=== PATIENT | female | born 1930 | race Caucasian/White ===

== ENCOUNTER 2016-09-26 | Inpatient (IN) | payer MEDICARE, MEDICAID ==
[2016-09-26] VITALS (7 sets, daily range): BP systolic 115–187; BP diastolic 57–87
[~2016-09-26] VITALS: Ht 162.6 cm; Wt 54.9 kg
[~2016-09-26] MED LIST: ACET325S PO; ALEN70TA5 PO; ASPI325T11 PO; CALC600T11 PO; CARV3.122 PO; DILT180C29 PO; DILT240C96 PO; FENT1PAT17 TD; HYDR-2867 PO; IBUP-1007 PO; LOSA50TA6 PO; MAGN400O4 PO; OXYC1TAB9 PO; SENN1TAB11 PO; SIMV10TA3 PO
[2016-09-26 00:39] LABS: BASO # 0.1 x10^3/uL (0.0-0.2); BASO % 1 % (0-3); EOS % 1 % (0-3); HEMATOCRIT 31.3 % (36.0-47.0); LYMPH # 1.4 x10^3/uL (1.0-4.8); LYMPH % 25 % (24-48); MEAN CORPUSCULAR HEMOGLOBIN 29 pg (25-35); MEAN CORPUSCULAR HGB CONC 32 g/dL (31-37); MEAN CORPUSCULAR VOLUME 90 fL (79-100); MONO % 9 % (0-9); NEUT % 64 % (31-73); PLATELET COUNT 326 x10^3/uL (140-400); RED BLOOD COUNT 3.49 x10^6/uL (3.50-5.40); RED CELL DISTRIBUTION WIDTH 16.6 % (11.5-14.5); WHITE BLOOD COUNT 5.6 x10^3/uL (4.0-11.0)
[2016-09-26 00:42] LABS: CALCIUM 8.7 mg/dL (8.5-10.1); CREATININE 1.6 mg/dL (0.6-1.0); GFR 30.6; POTASSIUM 4.3 mmol/L (3.5-5.1)
[2016-09-26 00:48] LABS: ALBUMIN 2.7 g/dL (3.4-5.0); ALBUMIN/GLOBULIN RATIO 0.6 (1.0-1.7); PROTHROMBIN TIME PATIENT 12.6 SEC (11.7-14.0); TOTAL BILIRUBIN 0.1 mg/dL (0.2-1.0); TOTAL PROTEIN 7.2 g/dL (6.4-8.2)
[2016-09-26 01:08] LABS: BILIRUBIN,URINE NEGATIVE (NEG); GLUCOSE,URINE NEGATIVE (NEG); NITRITE,URINE NEGATIVE (NEG); PROTEIN,URINE NEGATIVE (NEG-TRACE); UROBILINOGEN,URINE 0.2 mg/dL (0.2 mg/dL)
[2016-09-26 01:16] LABS: BACTERIA,URINE 0 /HPF (0-FEW); RBC,URINE OCC /HPF (0-2); SQUAMOUS EPITHELIAL CELL,UR OCC /LPF
[2016-09-26 01:20] LABS: BARBITURATES NEG (NEG); BENZODIAZEPINES NEG (NEG); CANNABINOIDS NEG (NEG); COCAINE NEG (NEG); METHADONE NEG (NEG); OPIATES NEG (NEG); PHENCYCLIDINE NEG (NEG)
[2016-09-26 01:29] LABS: ETHANOL, URINE NEG (NEG)
--- NOTE | 2016-09-26 01:41 | RAD ---
PROCEDURE CT head abdomen and pelvis without contrast 09/26/2016. HISTORY Acute mental status changes. Abdominal pain tonight. Low blood sugar. TECHNIQUE Noncontrast images were performed in the head and through the abdomen and pelvis. Exposure: One or more of the following individualized dose reduction techniques were utilized for this exam: 1. Automated exposure control. 2. Adjustment of the mA and/or kV according to patient size. 3. Use of iterative reconstruction technique. COMPARISON CT abdomen and pelvis 09/09/2016. FINDINGS CT head: No intracranial mass or hemorrhage is seen. There is no abnormal extra-axial fluid collection. Patchy low attenuation in the cerebral white matter usually indicates chronic small vessel ischemic injury. No other area of abnormal density is identified. The ventricles and basilar cisterns are normally positioned. The sinuses and mastoid air cells are clear. CT abdomen and pelvis: Mild atelectasis or scarring is seen at the lung bases. The liver and spleen are homogeneous in density and normal in configuration. Evaluation of the solid organs is limited without intravenous contrast. No calcified gallstones are seen. The kidneys show no apparent mass or obstruction. The adrenal glands are not enlarged. The pancreas is somewhat difficult to discern due to lack of surrounding fat. There is no obvious pancreatic mass or inflammation. No adenopathy is seen. The abdominal aorta continues to show some dilatation in the lower abdomen, similar to the prior exam. Images through the pelvis show no apparent abnormality of the distal ureters or bladder. The pelvis is partly obscured by artifact from the patient's right hip prosthesis. No pelvic soft tissue mass or inflammatory process is seen. IMPRESSION CT head: No acute findings. CT abdomen pelvis: No acute abnormality is identified. Evaluation is limited by noncontrast technique. Electronically signed by: Surendra Rodriguez (Sep 26, 2016 01:39:30)
[2016-09-26] MEDS ORDERED: DEXTROSE 50% 25 GM / 50ML DISP.SYRIN. IV ONE ×4 (01:52→10:06)
[2016-09-26] MEDS ORDERED: ONDANSETRON PF 4 MG/2 ML VIAL. IV PRN (02:15)
[2016-09-26] MEDS ORDERED: ACETAMINOPHEN 325 MG TABLET. PO PRN ×2 (02:15→11:45)
[2016-09-26] MEDS ORDERED: IV DEXTROSE 5% - 0.9 % NACL 1,000 ML IV ONE (02:15)
--- NOTE | 2016-09-26 02:39 | ACF ---
Admission Forms Criteria DIABETES, HYPOGLYCEMIA Clinical Indications for Admission to Inpatient Care (Place 'X' for any and all applicable criteria): Admission is indicated for ALL of the following (1)(2)(3)(4)(5): [X]I. Suspected or documented hypoglycemia (plasma glucose less than 50 mg/dL (2.78 mmol/L)) with severe clinical manifestations or issues as indicated by ANY ONE of the following: [ ]a) Altered mental status (eg, coma, confusion) [ ]b) Seizure [ ]c) Ataxia [ ]d) Dysphasia [ ]e) Focal neurologic deficit(6) [ ]f) Severe weakness or fatigue [X]g) Significant clinical signs or symptoms that do not resolve with treatment [ ]h) Hypoglycemia induced by ANY ONE of the following(7)(8)(9): [ ]i) Sulfonylurea(10) [ ]ii) Long-acting insulin (eg, half-life more than 6 hours ) (11) [X]II. Management at other levels of care (See General Criteria: Observation Care) is not feasible because of ANY ONE of the following: [X]a) Condition was not adequately corrected with treatment at other levels of care. [ ]b) Treatment at other levels of care is not appropriate because of condition severity (eg, coma). Extended stay beyond goal length of stay may be needed for(3)(12)(19): [ ]a) Long acting sulfonylurea-inducing hypoglycemia (10) [ ]b) Presentation in coma [ ]c) Identified etiology of hypoglycemia requires ongoing care (eg, infection ) [ ]d) Neurologic deficit [ ]e) Active serious comorbidities (eg, renal failure, heart failure) The original [employer] content created by [employer] has been revised. The portions of the content which have been revised are identified through the use of italic text or in bold, and [employer] [facility] has neither reviewed nor approved the modified material.All other unmodified content is copyright [employer]. Please see references footnoted in the original [employer] edition 2016 Admission Criteria Met?: Yes MECHE WADE Sep 26, 2016 02:39
--- NOTE | 2016-09-26 03:37 | PHYS DOC ---
Past Medical History Past Medical History: Anemia, Anxiety, CAD, COPD, Dementia, Depression, Glaucoma, High Cholesterol, Hypertension, Hypothyroid, Liver Disease, Pneumonia , Other Additional Past Medical Histor: thyroid disease, RA, CHRONIC KIDNEY DISEASE, BRADYCARDIA Past Surgical History: Other Additional Past Surgical Histo: fractured hip repair Alcohol Use: None Drug Use: None Adult General Chief Complaint Chief Complaint: BLOOD SUGAR PROBLEM HPI HPI Patient is a 85 year old female who presents with hypoglycemia. She is unable to give history due to her clinical condition. EMS called to [facility] for altered mental status & nonsensical shouting. Upon arrival she had blood glucose of 28, given 1/2 amp of D50. She was more awake in transport. Patient has no complaints during my evaluation but to RN she states "my belly, my belly , my belly!" Son here later in her stay, states she talked to her earlier today & they had a very normal conversation, she is typically A&Ox3, now barely recognizes him which is very unusual. She is at [facility] due to COPD. PCP is Dr. Marquez. Review of Systems Review of Systems Unable to obtain due to clinical condition Current Medications Current Medications Current Medications Medications (Trade) Dose Ordered Sig/Augusto Start Time Stop Time Status Last Admin Dose Admin Dextrose (Dextrose 50%-Water Syringe) 25 gm STK-MED ONCE 09/26/16 01:52 09/26/16 01:53 DC Allergies Allergies Allergies Coded Allergies Type Severity Reaction Last Updated Verified No Known Drug Allergies 02/17/15 No Physical Exam Physical Exam Constitutional: thin, frail, no acute distress, non-toxic appearance. HENT: Normocephalic, atraumatic, bilateral external ears normal, oropharynx moist, nose normal. Eyes: PERRLA 3 mm bilaterally, EOMI, conjunctiva normal, no discharge. Neck: supple, no stridor. Cardiovascular: RRR, 4/6 systolic murmur, no edema. Lungs & Thorax: diminished throughout, LCTAB, no wheezing, no respiratory distress. Abdomen: soft, nontender, nondistended. Skin: Warm, dry, no erythema, no rash. Back: No tenderness. Extremities: No tenderness, no edema. Neurologic: Alert, oriented to person only, moves all extremities, not compliant with cranial nerve exam Current Patient Data Vital Signs Vital Signs Date Time Temp Pulse Resp B/P Pulse Ox O2 Delivery O2 Flow Rate FiO2 09/26/16 02:00 86 157/68 95 Nasal Cannula 2 09/26/16 00:18 96.0 18 96.0 Lab Values Laboratory Tests Test 09/26/16 00:05 09/26/16 00:58 09/26/16 01:51 White Blood Count 5.6x10^3/uL (4.0-11.0) Red Blood Count 3.49x10^6/uL (3.50-5.40) L Hemoglobin 10.0g/dL (12.0-15.5) L Hematocrit 31.3% (36.0-47.0) L Mean Corpuscular Volume 90fL (79-100) Mean Corpuscular Hemoglobin 29pg (25-35) Mean Corpuscular Hemoglobin Concent 32g/dL (31-37) Red Cell Distribution Width 16.6% (11.5-14.5) H Platelet Count 326x10^3/uL (140-400) Neutrophils (%) (Auto) 64% (31-73) Lymphocytes (%) (Auto) 25% (24-48) Monocytes (%) (Auto) 9% (0-9) Eosinophils (%) (Auto) 1% (0-3) Basophils (%) (Auto) 1% (0-3) Neutrophils # (Auto) 3.6x10^3uL (1.8-7.7) Lymphocytes # (Auto) 1.4x10^3/uL (1.0-4.8) Monocytes # (Auto) 0.5x10^3/uL (0.0-1.1) Eosinophils # (Auto) 0.1x10^3/uL (0.0-0.7) Basophils # (Auto) 0.1x10^3/uL (0.0-0.2) Prothrombin Time 12.6SEC (11.7-14.0) Prothrombin Time INR 1.0 (0.8-1.1) PTT 25SEC (24-38) Sodium Level 139mmol/L (136-145) Potassium Level 4.3mmol/L (3.5-5.1) Chloride Level 103mmol/L (98-107) Carbon Dioxide Level 26mmol/L (21-32) Anion Gap 10 (6-14) Blood Urea Nitrogen 41mg/dL (7-20) H Creatinine 1.6mg/dL (0.6-1.0) H Estimated GFR (Cockcroft-Gault) 30.6 BUN/Creatinine Ratio 26 (6-20) H Glucose Level 104mg/dL (70-99) H Calcium Level 8.7mg/dL (8.5-10.1) Total Bilirubin 0.1mg/dL (0.2-1.0) L Aspartate Amino Transferase (AST) 29U/L (15-37) Alanine Aminotransferase (ALT) 27U/L (14-59) Alkaline Phosphatase 78U/L (46-116) Troponin I Quantitative < 0.017ng/mL (0.000-0.055) DN-Lbh-W-Type Natriuretic Peptide 1503pg/mL (0-449) H Total Protein 7.2g/dL (6.4-8.2) Albumin 2.7g/dL (3.4-5.0) L Albumin/Globulin Ratio 0.6 (1.0-1.7) L Thyroid Stimulating Hormone (TSH) 0.599uIU/mL (0.358-3.74) Salicylates Level < 2.8mg/dL (2.8-20.0) L Salicylate Last Dose Date Unknown Salicylate Last Dose Time Unknown Acetaminophen Level < 2mcg/ml (10-30) L Acetaminophen Last Dose Date Unknown Acetaminophen Last Dose Time Unknown Urine Collection Type U cath Urine Color Yellow Urine Clarity Clear Urine pH 6.0 Urine Specific Wilkinson 1.010 Urine Protein Negativemg/dL (NEG-TRACE) Urine Glucose (UA) Negativemg/dL (NEG) Urine Ketones (Stick) Negativemg/dL (NEG) Urine Blood Negative (NEG) Urine Nitrite Negative (NEG) Urine Bilirubin Negative (NEG) Urine Urobilinogen Dipstick 0.2mg/dL (0.2 mg/dL) Urine Leukocyte Esterase Negative (NEG) Urine RBC Occ/HPF (0-2) Urine WBC 1-4/HPF (0-4) Urine Squamous Epithelial Cells Occ/LPF Urine Bacteria 0/HPF (0-FEW) Urine Hyaline Casts Few/HPF Urine Opiates Screen Neg (NEG) Urine Methadone Screen Neg (NEG) Urine Barbiturates Neg (NEG) Urine Phencyclidine Screen Neg (NEG) Urine Amphetamine/Methamphetamine Neg (NEG) Urine Benzodiazepines Screen Neg (NEG) Urine Cocaine Screen Neg (NEG) Urine Cannabinoids Screen Neg (NEG) Urine Ethyl Alcohol Neg (NEG) Glucose (Fingerstick) 25mg/dL (70-99) *L Laboratory Tests 09/26/16 00:05 Laboratory Tests 09/26/16 00:05 EKG EKG interpreted by me: NSR rate 87, no acute ST/T wave changes, normal intervals, no ectopy.[] Radiology/Procedures Radiology/Procedures CXR: interpreted by me: no cardiomegaly, no infiltrate, no pneumothorax, appears similar to previous exams, no acute process. PROCEDURE: CT ABDOMEN PELVIS WO CONTRAST PROCEDURE CT head abdomen and pelvis without contrast 09/26/2016. HISTORY Acute mental status changes. Abdominal pain tonight. Low blood sugar. TECHNIQUE Noncontrast images were performed in the head and through the abdomen and pelvis. Exposure: One or more of the following individualized dose reduction techniques were utilized for this exam: 1. Automated exposure control. 2. Adjustment of the mA and/or kV according to patient size. 3. Use of iterative reconstruction technique. COMPARISON CT abdomen and pelvis 09/09/2016. FINDINGS CT head: No intracranial mass or hemorrhage is seen. There is no abnormal extra-axial fluid collection. Patchy low attenuation in the cerebral white matter usually indicates chronic small vessel ischemic injury. No other area of abnormal density is identified. The ventricles and basilar cisterns are normally positioned. The sinuses and mastoid air cells are clear. CT abdomen and pelvis: Mild atelectasis or scarring is seen at the lung bases. The liver and spleen are homogeneous in density and normal in configuration. Evaluation of the solid organs is limited without intravenous contrast. No calcified gallstones are seen. The kidneys show no apparent mass or obstruction. The adrenal glands are not enlarged. The pancreas is somewhat difficult to discern due to lack of surrounding fat. There is no obvious pancreatic mass or inflammation. No adenopathy is seen. The abdominal aorta continues to show some dilatation in the lower abdomen, similar to the prior exam. Images through the pelvis show no apparent abnormality of the distal ureters or bladder. The pelvis is partly obscured by artifact from the patient's right hip prosthesis. No pelvic soft tissue mass or inflammatory process is seen. IMPRESSION CT head: No acute findings. CT abdomen pelvis: No acute abnormality is identified. Evaluation is limited by noncontrast technique. Electronically signed by: Isabell Rodriguez (Sep 26, 2016 01:39:30) DICTATED and SIGNED BY: ISABELL RODRIGUEZ Jr, MD DATE: 09/26/16 0139 [] Course & Med Decision Making Course & Med Decision Making Pertinent Labs and Imaging studies reviewed. (See chart for details) The patient presents with altered mental status & hypoglycemia. She had glucose in 130s upon arrival but still quite confused & poorly following commands. I did not appreciate focal neurologic deficit. Obtained labs, EKG, CXR, CT head, CT abd/pelvis. No acute abnormality identified. Repeat glucose was again in 20s. She had not been in appropriate mental condition to consume a meal. Additional D50 given, D5NS initiated. Recommended admission to the hospital for further glucose management, possible additional workup of altered mental status if persistent after stabilization of glucose. Discussed with Dr. Roberts who agrees to admit to inpatient status, consult to Dr. Poe of neurology. The patient is admitted in stable condition. [] Dragon Disclaimer Dragon Disclaimer This electronic medical record was generated, in whole or in part, using a voice recognition dictation system. Departure Departure Referrals: MOISÉS MARQUEZ (PCP) ANIKA COOL MD Sep 26, 2016 03:37
[2016-09-26] MEDS ORDERED: ASPI81TA2 PO (04:13)
[2016-09-26] MEDS ORDERED: ALPR0.25 PO (04:13)
[2016-09-26] MEDS ORDERED: TRAM50TA PO (04:13)
[2016-09-26] MEDS ORDERED: CLON1PAT9 TD (04:13)
[2016-09-26] MEDS ORDERED: ACET325T9 PO (04:13)
[2016-09-26] MEDS ORDERED: CEFP100T PO (04:13)
[2016-09-26] MEDS ORDERED: FURO-69 PO (04:13)
[2016-09-26] MEDS ORDERED: POTA10CA PO (04:13)
[2016-09-26] MEDS ORDERED: SIMV10TA3 PO (04:13)
--- NOTE | 2016-09-26 09:20 | RAD ---
AP portable chest radiograph 09/26/2016 Clinical History: Right basilar infiltrate. An AP portable erect digital radiograph of the chest was obtained. Comparison study is dated 09/14/2016. The cardiac silhouette is borderline enlarged. Atherosclerotic calcification of the thoracic aorta is seen. The thoracic aorta is tortuous. The patient is status post lower thoracic kyphoplasty, unchanged. Improving right lower lobe atelectasis and/or infiltrate is noted. Prominence of the pulmonary vasculature is seen suggesting mild CHF. Left basilar subsegmental atelectasis and/or infiltrate is unchanged. No pneumothorax or large pleural effusion is noted. The osseous structures are unchanged. Impression: 1. Improving right lower lobe atelectasis and or infiltrate. 2. Mild CHF.
--- NOTE | 2016-09-26 10:29 | EKG ---
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
[2016-09-26] MEDS ORDERED: ALPRAZOLAM 0.25 MG TABLET. PO PRN (11:45)
[2016-09-26] MEDS ORDERED: TRAMADOL 50 MG TABLET. PO PRN (11:45)
--- NOTE | 2016-09-26 11:55 | PDOC ---
Provider Note Provider Note pt seen.H&P dictated. #[id number] TERESO HEAD MD Sep 26, 2016 11:55
[2016-09-26] MEDS: POTASSIUM CHLORIDE 10 MEQ TABLET.ER. PO SCH ×2 (12:00→12:16)
[2016-09-26] MEDS: CARVEDILOL 3.125 MG TABLET. PO SCH ×3 (12:00→16:31)
[2016-09-26] MEDS: ASPIRIN CHEWABLE 81 MG TABLET. PO SCH ×2 (12:00→12:19)
[2016-09-26] MEDS: DILTIAZEM HCL 240 MG CAP.ER.24H PO SCH ×2 (12:00→12:16)
[2016-09-26] MEDS: FUROSEMIDE 20 MG TABLET PO SCH ×2 (12:00→12:16)
[2016-09-26] MEDS: LOSARTAN POTASSIUM 50 MG TABLET. PO SCH ×2 (12:00→12:17)
[2016-09-26] MEDS: IV DEXTROSE 5 %-0.45 % NACL 1,000 ML IV SCH (12:15)
[2016-09-26] MEDS: ENOXAPARIN 30 MG/0.3 ML SYRINGE. SQ SCH (12:20)
--- NOTE | 2016-09-26 12:33 | HP ---
ADMIT DATE: 09/26/2016 LOCATION: [facility]. REASON FOR ADMISSION TO THE HOSPITAL: Mental status changes and hypoglycemia. HISTORY OF PRESENT ILLNESS: The patient is an 85-year-old female. The patient recently went to [facility] from [facility]. At that time, the patient had a respiratory failure, COPD, CHF and she was doing relatively well and yesterday she was very lethargic, not responding and she was brought into the hospital. Her sugar was low, 28, was given D50 and she was more awake and she is feeling better, and she does not remember what happened and the patient is not diabetic. PAST MEDICAL HISTORY: History of COPD, CHF, coronary artery disease, hypertension, hypothyroidism, pneumonia, and chronic kidney disease. PAST SURGICAL HISTORY: Fractured hip in the past, which was repaired. ALLERGIES: No known drug allergies. MEDICATIONS AT THE FACILITY: Tylenol, Xanax, aspirin, diltiazem, Lasix, hydralazine, losartan, potassium, simvastatin, tramadol and Catapres patch, and also Vantin, which was done. PERSONAL HISTORY: She lives with her son. She has been, kind of, declining steadily. REVIEW OF SYSTEMS: The patient does not remember what happened ____ chest pain, shortness of breath. PHYSICAL EXAMINATION: GENERAL: The patient is not in any distress. VITAL SIGNS: At the time of show, temperature 97, pulse 82, respirations 24, blood pressure 146/76 and 97% on 2 liters. HEENT: Head is atraumatic. Pupils equal. Oral cavity, dentures. NECK: Supple. Thyroid not enlarged. CHEST: Symmetrical. CARDIOVASCULAR: S1, S2. LUNGS: Clear to auscultation. ABDOMEN: Soft. No masses palpable. EXTERNAL GENITALIA: No Mata. RECTAL: Deferred. EXTREMITIES: No calf tenderness or edema. Pulses 1+. NEUROLOGIC: Moving all extremities. No focal deficit noted. LABORATORY DATA: Shows a white count of 5.6, hemoglobin 10, and platelets 326. Electrolytes show sodium 139, potassium 4.3, chloride 103, bicarbonate 26, BUN 41, creatinine 1.6, glucose 104, but 28 at the scene. LFTs was normal. INR 1.0. UA was negative. Toxicology was negative. CT head was negative. Chest x-ray was negative. Abdomen and pelvis CT was negative. FINAL IMPRESSION: 1. Mental status changes secondary to hypoglycemia.Pt is not known to be diabetic. 2. Chronic obstructive pulmonary disease. 3. Congestive heart failure. 4. Hypertension. 5. Chronic diastolic dysfunction. 6. Chronic renal insufficiency. 7. Hypothyroidism. 8. General decline. PLAN: At this time, was admitted to the hospital, was given D50 IV fluids D5W. Check A1c and see how the patient's condition improves. The patient, I believe, was DNR last admission. We will check with the family again. Hopefully, should be able to send back to the senior living within 1-2 days. TERESO HEAD MD DR: OLIVIA/jeffrey JOB#: [id number] / [id number] MOISÉS Simons MTDBrittani
[2016-09-26] MEDS: DEXTROSE 50% 25 GM / 50ML DISP.SYRIN. IV PRN ×4 (12:41→20:40)
[2016-09-26] MEDS: hydrALAZINE 10 MG TABLET PO SCH ×2 (15:09→20:35)
--- NOTE | 2016-09-26 15:32 | PDOC2 ---
CONSULT Date of Consult Date of Consult DATE: 09/26/16 TIME: 15:30 Reason for Consult Reason for Consult: Altered mental status, hypoglycemia History of Present Illness Reason for Visit: This patient is a 85-year-old female patient who went to [facility] recently from [facility]. Patient was treated for respiratory failure, COPD, CHF. Patient is doing relatively well yesterday she had an episode when she was lethargic and was not responding appropriately patient had low blood sugars of 28 was given D50. Patient is feeling better now patient is alert and appropriate. She had a CT scan done on the brain which did not show any acute findings. Encephalopathy secondary to low blood sugars which is improving. Past Medical History Pulmonary: COPD CENTRAL NERVOUS SYSTEM: Dementia Heme/Onc: Anemia NOS Rheumatologic: Rheumatoid arthritis Endocrine: Hypothyroidism, Osteoporosis, Other Past Surgical History Past Surgical History: Appendectomy, Cholecystectomy, Tubal Ligation, Other Family History Family History: Coronary Artery Disease Social History ALCOHOL: none Drugs: None Lives: with Family Current Problem List Problem List Problems Medical Problems: (1) Altered mental status Status: Acute (2) Hypoglycemia Status: Acute Current Medications Current Medications Current Medications Dextrose (Dextrose 50%-Water Syringe) 25 gm STK-MED ONCE IV ; Start 09/26/16 at 01:52; Stop 09/26/16 at 01:53; Status DC Dextrose 25 gm 25 gm 1X ONCE IV Last administered on 09/26/16 02:15; Start at 02:15; Stop 09/26/16 at 02:16; Status DC Dextrose/Sodium Chloride (Iv D5% - NS) 1,000 ml @ 75 mls/hr 1X ONCE IV Last administered on 09/26/16 02:50; Start 09/26/16 at 02:15; Stop 09/26/16 at 15:34 Ondansetron HCl (Zofran) 4 mg PRN Q8HRS PRN IV NAUSEA/VOMITING; Start 09/26/16 at 02:15; Stop 09/27/16 at 02:14 Acetaminophen (Tylenol) 650 mg PRN Q4HRS PRN PO FEVER; Start 09/26/16 at 02:15 ; Stop 09/26/16 at 11:48; Status DC Dextrose (Dextrose 50%-Water Syringe) 25 gm STK-MED ONCE IV ; Start 09/26/16 at 10:06; Stop 09/26/16 at 10:07; Status DC Acetaminophen (Tylenol) 650 mg PRN Q8HRS PRN PO MILD PAIN; Start 09/26/16 at 11 :45 Alprazolam (Xanax) 0.25 mg PRN DAILY PRN PO ANXIETY / AGITATION; Start at 11:45 Aspirin (Children'S Aspirin) 81 mg DAILY PO ; Start 09/26/16 at 12:00 Carvedilol (Coreg) 3.125 mg BIDWMEALS PO ; Start 09/26/16 at 12:00; Stop at 21:00 Diltiazem HCl (Cardizem 24hr Cd) 240 mg DAILY PO ; Start 09/26/16 at 12:00 Furosemide (Lasix) 20 mg DAILY PO ; Start 09/26/16 at 12:00 Hydralazine HCl (Apresoline) 10 mg TID PO Last administered on 09/26/16 15:09 ; Start 09/26/16 at 14:00 Losartan Potassium (Cozaar) 50 mg DAILY PO ; Start 09/26/16 at 12:00 Simvastatin (Zocor) 10 mg QHS PO ; Start 09/26/16 at 21:00 Tramadol HCl (Ultram) 50 mg PRN BID PRN PO MODERATE PAIN; Start 09/26/16 at 11: 45 Potassium Chloride (Klor-Con) 10 meq DAILYWBKFT PO ; Start 09/26/16 at 12:00 Dextrose (Dextrose 50%-Water Syringe) 12.5 gm PRN Q15MIN PRN IV SEE COMMENTS Last administered on 09/26/16 14:21; Start 09/26/16 at 11:45 Enoxaparin Sodium 30 mg 30 mg Q24H SQ Last administered on 09/26/16 12:20; Start 09/26/16 at 12:00 Dextrose/Sodium Chloride (Iv D5% - 1/2 NS) 1,000 ml @ 75 mls/hr [id number] IV Last administered on 09/26/16 12:15; Start 09/26/16 at 12:00 Active Scripts Active Reported Xanax (Alprazolam) 0.25 Mg Tablet 1 Tab PO DAILY Tramadol Hcl 50 Mg Tablet 1 Tab PO BID Simvastatin 10 Mg Tablet 1 Tab PO QHS Potassium Chloride 10 Meq Capsule.er 10 Meq PO DAILY Lasix (Furosemide) 20 Mg Tablet 1 Tab PO DAILY Cefpodoxime Proxetil 100 Mg Tablet 100 Mg PO Catapres-Tts 1 (Clonidine) 1 Each Patch.tdwk 1 Each TD WEEKLY PRN Aspirin 81 Mg Tab.chew 1 Tab PO DAILY Tylenol (Acetaminophen) 325 Mg Tablet 650 Mg PO PRN Q8HRS PRN Diltiazem 24Hr Cd (Diltiazem HCl) 240 Mg Cap.er.24h 240 Mg PO DAILY Hydralazine Hcl 10 Mg Tablet 10 Mg PO TID Carvedilol 3.125 Mg Tablet 3.125 Mg PO BID Losartan Potassium 50 Mg Tablet 50 Mg PO DAILY Allergies Allergies: Coded Allergies: No Known Drug Allergies (Unverified , 02/17/15) Physical Exam Physical Exam REVIEW OF SYSTEMS: Denies any complaint of chest pain shortness of breath fever nausea vomiting headache dizziness. NEUROLOGICAL EXAMINATION: Alert Oriented to time, place and person. PERRL. EOMI. CN: no focal findings. Muscle tone: within normal. Muscle strength:good DTR: 1-2 Plantar reflex: Flexor response bilaterally Gait: not examined in bed. Sensory exam: no abnormal findings. No obvious cerebellar signs elicited. Vitals VITALS Vital Signs Date Time Temp Pulse Resp B/P Pulse Ox O2 Delivery O2 Flow Rate FiO2 09/26/16 15:09 99 150/69 09/26/16 14:44 96.8 24 97 Nasal Cannula 2.0 96.8 Labs Labs Laboratory Tests Test 09/26/16 00:05 09/26/16 00:58 09/26/16 01:51 09/26/16 02:33 White Blood Count 5.6x10^3/uL (4.0-11.0) Red Blood Count 3.49x10^6/uL (3.50-5.40) Hemoglobin 10.0g/dL (12.0-15.5) Hematocrit 31.3% (36.0-47.0) Mean Corpuscular Volume 90fL (79-100) Mean Corpuscular Hemoglobin 29pg (25-35) Mean Corpuscular Hemoglobin Concent 32g/dL (31-37) Red Cell Distribution Width 16.6% (11.5-14.5) Platelet Count 326x10^3/uL (140-400) Neutrophils (%) (Auto) 64% (31-73) Lymphocytes (%) (Auto) 25% (24-48) Monocytes (%) (Auto) 9% (0-9) Eosinophils (%) (Auto) 1% (0-3) Basophils (%) (Auto) 1% (0-3) Neutrophils # (Auto) 3.6x10^3uL (1.8-7.7) Lymphocytes # (Auto) 1.4x10^3/uL (1.0-4.8) Monocytes # (Auto) 0.5x10^3/uL (0.0-1.1) Eosinophils # (Auto) 0.1x10^3/uL (0.0-0.7) Basophils # (Auto) 0.1x10^3/uL (0.0-0.2) Prothrombin Time 12.6SEC (11.7-14.0) Prothromb Time International Ratio 1.0 (0.8-1.1) Activated Partial Thromboplast Time 25SEC (24-38) Sodium Level 139mmol/L (136-145) Potassium Level 4.3mmol/L (3.5-5.1) Chloride Level 103mmol/L (98-107) Carbon Dioxide Level 26mmol/L (21-32) Anion Gap 10 (6-14) Blood Urea Nitrogen 41mg/dL (7-20) Creatinine 1.6mg/dL (0.6-1.0) Estimated GFR (Cockcroft-Gault) 30.6 BUN/Creatinine Ratio 26 (6-20) Glucose Level 104mg/dL (70-99) Calcium Level 8.7mg/dL (8.5-10.1) Total Bilirubin 0.1mg/dL (0.2-1.0) Aspartate Amino Transf (AST/SGOT) 29U/L (15-37) Alanine Aminotransferase (ALT/SGPT) 27U/L (14-59) Alkaline Phosphatase 78U/L (46-116) Troponin I Quantitative < 0.017ng/mL (0.000-0.055) WA-Kfc-C-Type Natriuretic Peptide 1503pg/mL (0-449) Total Protein 7.2g/dL (6.4-8.2) Albumin 2.7g/dL (3.4-5.0) Albumin/Globulin Ratio 0.6 (1.0-1.7) Thyroid Stimulating Hormone (TSH) 0.599uIU/mL (0.358-3.74) Salicylates Level < 2.8mg/dL (2.8-20.0) Salicylate Last Dose Date Unknown Salicylate Last Dose Time Unknown Acetaminophen Level < 2mcg/ml (10-30) Acetaminophen Last Dose Date Unknown Acetaminophen Last Dose Time Unknown Urine Collection Type U cath Urine Color Yellow Urine Clarity Clear Urine pH 6.0 Urine Specific Hunter 1.010 Urine Protein Negativemg/dL (NEG-TRACE) Urine Glucose (UA) Negativemg/dL (NEG) Urine Ketones (Stick) Negativemg/dL (NEG) Urine Blood Negative (NEG) Urine Nitrite Negative (NEG) Urine Bilirubin Negative (NEG) Urine Urobilinogen Dipstick 0.2mg/dL (0.2 mg/dL) Urine Leukocyte Esterase Negative (NEG) Urine RBC Occ/HPF (0-2) Urine WBC 1-4/HPF (0-4) Urine Squamous Epithelial Cells Occ/LPF Urine Bacteria 0/HPF (0-FEW) Urine Hyaline Casts Few/HPF Urine Opiates Screen Neg (NEG) Urine Methadone Screen Neg (NEG) Urine Barbiturates Neg (NEG) Urine Phencyclidine Screen Neg (NEG) Urine Amphetamine/Methamphetamine Neg (NEG) Urine Benzodiazepines Screen Neg (NEG) Urine Cocaine Screen Neg (NEG) Urine Cannabinoids Screen Neg (NEG) Urine Ethyl Alcohol Neg (NEG) Glucose (Fingerstick) 25mg/dL (70-99) 124mg/dL (70-99) Test 09/26/16 03:12 09/26/16 04:27 09/26/16 05:09 09/26/16 05:39 Glucose (Fingerstick) 84mg/dL (70-99) 69mg/dL (70-99) 61mg/dL (70-99) 78mg/dL (70-99) Test 09/26/16 06:17 09/26/16 07:31 09/26/16 08:18 09/26/16 09:02 Glucose (Fingerstick) 96mg/dL (70-99) 41mg/dL (70-99) 69mg/dL (70-99) 78mg/dL (70-99) Test 09/26/16 10:05 09/26/16 10:19 09/26/16 11:09 09/26/16 11:56 Glucose (Fingerstick) 39mg/dL (70-99) 128mg/dL (70-99) 70mg/dL (70-99) 49mg/dL (70-99) Test 09/26/16 12:55 09/26/16 14:00 09/26/16 14:59 Glucose (Fingerstick) 88mg/dL (70-99) 40mg/dL (70-99) 47mg/dL (70-99) Laboratory Tests Test 09/26/16 00:05 09/26/16 00:58 09/26/16 01:51 09/26/16 02:33 White Blood Count 5.6x10^3/uL (4.0-11.0) Red Blood Count 3.49x10^6/uL (3.50-5.40) Hemoglobin 10.0g/dL (12.0-15.5) Hematocrit 31.3% (36.0-47.0) Mean Corpuscular Volume 90fL (79-100) Mean Corpuscular Hemoglobin 29pg (25-35) Mean Corpuscular Hemoglobin Concent 32g/dL (31-37) Red Cell Distribution Width 16.6% (11.5-14.5) Platelet Count 326x10^3/uL (140-400) Neutrophils (%) (Auto) 64% (31-73) Lymphocytes (%) (Auto) 25% (24-48) Monocytes (%) (Auto) 9% (0-9) Eosinophils (%) (Auto) 1% (0-3) Basophils (%) (Auto) 1% (0-3) Neutrophils # (Auto) 3.6x10^3uL (1.8-7.7) Lymphocytes # (Auto) 1.4x10^3/uL (1.0-4.8) Monocytes # (Auto) 0.5x10^3/uL (0.0-1.1) Eosinophils # (Auto) 0.1x10^3/uL (0.0-0.7) Basophils # (Auto) 0.1x10^3/uL (0.0-0.2) Prothrombin Time 12.6SEC (11.7-14.0) Prothromb Time International Ratio 1.0 (0.8-1.1) Activated Partial Thromboplast Time 25SEC (24-38) Sodium Level 139mmol/L (136-145) Potassium Level 4.3mmol/L (3.5-5.1) Chloride Level 103mmol/L (98-107) Carbon Dioxide Level 26mmol/L (21-32) Anion Gap 10 (6-14) Blood Urea Nitrogen 41mg/dL (7-20) Creatinine 1.6mg/dL (0.6-1.0) Estimated GFR (Cockcroft-Gault) 30.6 BUN/Creatinine Ratio 26 (6-20) Glucose Level 104mg/dL (70-99) Calcium Level 8.7mg/dL (8.5-10.1) Total Bilirubin 0.1mg/dL (0.2-1.0) Aspartate Amino Transf (AST/SGOT) 29U/L (15-37) Alanine Aminotransferase (ALT/SGPT) 27U/L (14-59) Alkaline Phosphatase 78U/L (46-116) Troponin I Quantitative < 0.017ng/mL (0.000-0.055) GT-Jmf-L-Type Natriuretic Peptide 1503pg/mL (0-449) Total Protein 7.2g/dL (6.4-8.2) Albumin 2.7g/dL (3.4-5.0) Albumin/Globulin Ratio 0.6 (1.0-1.7) Thyroid Stimulating Hormone (TSH) 0.599uIU/mL (0.358-3.74) Salicylates Level < 2.8mg/dL (2.8-20.0) Salicylate Last Dose Date Unknown Salicylate Last Dose Time Unknown Acetaminophen Level < 2mcg/ml (10-30) Acetaminophen Last Dose Date Unknown Acetaminophen Last Dose Time Unknown Urine Collection Type U cath Urine Color Yellow Urine Clarity Clear Urine pH 6.0 Urine Specific Hunter 1.010 Urine Protein Negativemg/dL (NEG-TRACE) Urine Glucose (UA) Negativemg/dL (NEG) Urine Ketones (Stick) Negativemg/dL (NEG) Urine Blood Negative (NEG) Urine Nitrite Negative (NEG) Urine Bilirubin Negative (NEG) Urine Urobilinogen Dipstick 0.2mg/dL (0.2 mg/dL) Urine Leukocyte Esterase Negative (NEG) Urine RBC Occ/HPF (0-2) Urine WBC 1-4/HPF (0-4) Urine Squamous Epithelial Cells Occ/LPF Urine Bacteria 0/HPF (0-FEW) Urine Hyaline Casts Few/HPF Urine Opiates Screen Neg (NEG) Urine Methadone Screen Neg (NEG) Urine Barbiturates Neg (NEG) Urine Phencyclidine Screen Neg (NEG) Urine Amphetamine/Methamphetamine Neg (NEG) Urine Benzodiazepines Screen Neg (NEG) Urine Cocaine Screen Neg (NEG) Urine Cannabinoids Screen Neg (NEG) Urine Ethyl Alcohol Neg (NEG) Glucose (Fingerstick) 25mg/dL (70-99) 124mg/dL (70-99) Test 09/26/16 03:12 09/26/16 04:27 09/26/16 05:09 09/26/16 05:39 Glucose (Fingerstick) 84mg/dL (70-99) 69mg/dL (70-99) 61mg/dL (70-99) 78mg/dL (70-99) Test 09/26/16 06:17 09/26/16 07:31 09/26/16 08:18 09/26/16 09:02 Glucose (Fingerstick) 96mg/dL (70-99) 41mg/dL (70-99) 69mg/dL (70-99) 78mg/dL (70-99) Test 09/26/16 10:05 09/26/16 10:19 09/26/16 11:09 09/26/16 11:56 Glucose (Fingerstick) 39mg/dL (70-99) 128mg/dL (70-99) 70mg/dL (70-99) 49mg/dL (70-99) Test 09/26/16 12:55 09/26/16 14:00 09/26/16 14:59 Glucose (Fingerstick) 88mg/dL (70-99) 40mg/dL (70-99) 47mg/dL (70-99) Assessment/Plan Assessment/Plan This patient is a 85-year-old female patient who went to [facility] recently from [facility]. Patient was treated for respiratory failure, COPD, CHF. Patient is doing relatively well yesterday she had an episode when she was lethargic and was not responding appropriately patient had low blood sugars of 28 was given D50. Patient is feeling better now patient is alert and appropriate. She had a CT scan done on the brain which did not show any acute findings. Encephalopathy secondary to low blood sugars which is improving. Check MRI brain to rule out any acute process Check for any infectious, metabolic etiology PT OT evaluation Continue medical management YARITZA LOUISE MD Sep 26, 2016 15:32
[2016-09-26] MEDS ORDERED: SIMVASTATIN 10 MG TABLET PO SCH (21:00)
[2016-09-27] MEDS: IV DEXTROSE 5 %-0.45 % NACL 1,000 ML IV SCH ×2 (01:04→14:40)
[2016-09-27 03:20] VITALS: BP 160/72
[2016-09-27 04:05] VITALS: BP 156/83
[2016-09-27 04:57] LABS: BASO # 0.1 x10^3/uL (0.0-0.2); BASO % 1 % (0-3); EOS % 3 % (0-3); HEMOGLOBIN 8.9 g/dL (12.0-15.5); LYMPH # 1.6 x10^3/uL (1.0-4.8); LYMPH % 32 % (24-48); MEAN CORPUSCULAR HEMOGLOBIN 29 pg (25-35); MEAN CORPUSCULAR HGB CONC 33 g/dL (31-37); MEAN CORPUSCULAR VOLUME 88 fL (79-100); MONO % 10 % (0-9); NEUT % 54 % (31-73); PLATELET COUNT 302 x10^3/uL (140-400); RED BLOOD COUNT 3.07 x10^6/uL (3.50-5.40); RED CELL DISTRIBUTION WIDTH 16.7 % (11.5-14.5); WHITE BLOOD COUNT 5.1 x10^3/uL (4.0-11.0)
[2016-09-27 05:23] LABS: CALCIUM 8.4 mg/dL (8.5-10.1); CREATININE 1.2 mg/dL (0.6-1.0); GFR 42.6; POTASSIUM 4.5 mmol/L (3.5-5.1)
[2016-09-27 07:00] VITALS: BP 173/104
[2016-09-27] MEDS: FUROSEMIDE 20 MG TABLET PO SCH (08:21)
[2016-09-27] MEDS: hydrALAZINE 10 MG TABLET PO SCH ×2 (08:21→14:00)
[2016-09-27] MEDS: POTASSIUM CHLORIDE 10 MEQ TABLET.ER. PO SCH (08:21)
[2016-09-27] MEDS: DILTIAZEM HCL 240 MG CAP.ER.24H PO SCH (08:21)
[2016-09-27] MEDS: LOSARTAN POTASSIUM 50 MG TABLET. PO SCH (08:22)
[2016-09-27] MEDS: ASPIRIN CHEWABLE 81 MG TABLET. PO SCH (08:22)
--- NOTE | 2016-09-27 10:13 | PDOC ---
PROGRESS NOTES Subjective Subjective mental status back to base line Objective Objective Vital Signs Date Time Temp Pulse Resp B/P Pulse Ox O2 Delivery O2 Flow Rate FiO2 09/27/16 08:22 96 173/104 09/27/16 08:00 Nasal Cannula 2.0 09/27/16 07:00 97.8 18 95 97.8 Intake and Output 09/27/16 07:00 Intake Total 680 ml Output Total 901 ml Balance -221 ml Intake Oral 680 ml Output Urine Total 900 ml Stool Total 1 ml # Voids 8 Physical Exam Abdomen: Normal bowel sounds, Soft Heart: Regular rate, Normal S1, Normal S2 Extremities: No clubbing General: Alert HEENT: Atraumatic Lungs: Clear to auscultation MUSCULOSKELETAL: No swelling Neck: Supple Neuro: Normal speech Psych/Mental Status: Mood NL Skin: No breakdown Diagnosis Problem List Problems Medical Problems: (1) Altered mental status Status: Acute (2) Hypoglycemia Status: Acute Assessment Assessment Problems Medical Problems: (1) Altered mental status Status: Acute (2) Hypoglycemia Status: Acute FINAL IMPRESSION: 1. Mental status changes secondary to hypoglycemia,not a diabetic pt. 2. Chronic obstructive pulmonary disease. 3. Congestive heart failure. 4. Hypertension. 5. Chronic diastolic dysfunction. 6. Chronic renal insufficiency stage 3. 7. Hypothyroidism. 8. General decline. PLAN: blood sugars good. labs ok back to base line spoke with son . d/c back to [place] today. Problems: Plan Plan of Care Problems Medical Problems: (1) Altered mental status Status: Acute (2) Hypoglycemia Status: Acute Comment Review of Relevant I have reviewed the following items tin (where applicable) has been applied. Labs Laboratory Tests Test 09/26/16 10:19 09/26/16 11:09 09/26/16 11:56 09/26/16 12:55 Glucose (Fingerstick) 128mg/dL (70-99) 70mg/dL (70-99) 49mg/dL (70-99) 88mg/dL (70-99) Test 09/26/16 14:00 09/26/16 14:59 09/26/16 16:18 09/26/16 16:40 Glucose (Fingerstick) 40mg/dL (70-99) 47mg/dL (70-99) 41mg/dL (70-99) 148mg/dL (70-99) Test 09/26/16 17:14 09/26/16 17:57 09/26/16 20:37 09/26/16 21:08 Glucose (Fingerstick) 61mg/dL (70-99) 76mg/dL (70-99) 31mg/dL (70-99) 109mg/dL (70-99) Test 09/27/16 00:19 09/27/16 02:43 09/27/16 04:30 09/27/16 05:54 Glucose (Fingerstick) 76mg/dL (70-99) 93mg/dL (70-99) 89mg/dL (70-99) White Blood Count 5.1x10^3/uL (4.0-11.0) Red Blood Count 3.07x10^6/uL (3.50-5.40) Hemoglobin 8.9g/dL (12.0-15.5) Hematocrit 27.0% (36.0-47.0) Mean Corpuscular Volume 88fL (79-100) Mean Corpuscular Hemoglobin 29pg (25-35) Mean Corpuscular Hemoglobin Concent 33g/dL (31-37) Red Cell Distribution Width 16.7% (11.5-14.5) Platelet Count 302x10^3/uL (140-400) Neutrophils (%) (Auto) 54% (31-73) Lymphocytes (%) (Auto) 32% (24-48) Monocytes (%) (Auto) 10% (0-9) Eosinophils (%) (Auto) 3% (0-3) Basophils (%) (Auto) 1% (0-3) Neutrophils # (Auto) 2.7x10^3uL (1.8-7.7) Lymphocytes # (Auto) 1.6x10^3/uL (1.0-4.8) Monocytes # (Auto) 0.5x10^3/uL (0.0-1.1) Eosinophils # (Auto) 0.2x10^3/uL (0.0-0.7) Basophils # (Auto) 0.1x10^3/uL (0.0-0.2) Sodium Level 140mmol/L (136-145) Potassium Level 4.5mmol/L (3.5-5.1) Chloride Level 106mmol/L (98-107) Carbon Dioxide Level 28mmol/L (21-32) Anion Gap 6 (6-14) Blood Urea Nitrogen 22mg/dL (7-20) Creatinine 1.2mg/dL (0.6-1.0) Estimated GFR (Cockcroft-Gault) 42.6 Glucose Level 105mg/dL (70-99) Calcium Level 8.4mg/dL (8.5-10.1) Test 09/27/16 07:38 Glucose (Fingerstick) 88mg/dL (70-99) Medications Current Medications Acetaminophen (Tylenol) 650 mg PRN Q8HRS PRN PO MILD PAIN; Start 09/26/16 at 11 :45 Alprazolam (Xanax) 0.25 mg PRN DAILY PRN PO ANXIETY / AGITATION; Start at 11:45 Aspirin (Children'S Aspirin) 81 mg DAILY PO Last administered on 09/27/16 08: 22; Start 09/26/16 at 12:00 Carvedilol (Coreg) 3.125 mg BIDWMEALS PO Last administered on 09/26/16 16:31; Start 09/26/16 at 12:00; Stop 09/26/16 at 21:00; Status DC Dextrose (Dextrose 50%-Water Syringe) 12.5 gm PRN Q15MIN PRN IV SEE COMMENTS Last administered on 09/26/16 20:40; Start 09/26/16 at 11:45 Dextrose/Sodium Chloride (Iv D5% - 1/2 NS) 1,000 ml @ 75 mls/hr [id number] IV Last administered on 09/27/16 01:04; Start 09/26/16 at 12:00 Diltiazem HCl (Cardizem 24hr Cd) 240 mg DAILY PO Last administered on 08:21; Start 09/26/16 at 12:00 Enoxaparin Sodium 30 mg 30 mg Q24H SQ Last administered on 09/26/16 12:20; Start 09/26/16 at 12:00 Furosemide (Lasix) 20 mg DAILY PO Last administered on 09/27/16 08:21; Start 09/26/16 at 12:00 Hydralazine HCl (Apresoline) 10 mg TID PO Last administered on 09/27/16 08:21 ; Start 09/26/16 at 14:00 Losartan Potassium (Cozaar) 50 mg DAILY PO Last administered on 09/27/16 08:22 ; Start 09/26/16 at 12:00 Potassium Chloride (Klor-Con) 10 meq DAILYWBKFT PO Last administered on 08:21; Start 09/26/16 at 12:00 Simvastatin (Zocor) 10 mg QHS PO Last administered on 09/26/16 20:33; Start at 21:00 Tramadol HCl (Ultram) 50 mg PRN BID PRN PO MODERATE PAIN; Start 09/26/16 at 11: 45 Vitals/I & O Vital Sign - Last 24 Hours 09/26/16 09/26/16 09/26/16 09/26/16 11:00 12:00 12:00 12:00 Temp 96.6 96.6 Pulse 97 97 97 97 Resp 24 B/P 128/67 128/67 128/67 128/67 Pulse Ox 93 O2 Delivery Nasal Cannula O2 Flow Rate 3.0 09/26/16 09/26/16 09/26/16 09/26/16 14:44 15:09 16:31 19:00 Temp 96.8 98.1 96.8 98.1 Pulse 99 99 99 92 Resp B/P 150/69 150/69 150/69 115/57 Pulse Ox 97 96 O2 Delivery Nasal Cannula Nasal Cannula O2 Flow Rate 2.0 2.0 09/26/16 09/26/16 09/26/16 09/27/16 20:09 20:35 22:51 03:20 Temp 98.2 98.0 98.2 98.0 Pulse 92 93 86 Resp 20 B/P 115/57 117/72 160/72 Pulse Ox 94 96 O2 Delivery Nasal Cannula Nasal Cannula Nasal Cannula O2 Flow Rate 2.0 2.0 2.0 09/27/16 09/27/16 09/27/16 09/27/16 04:05 07:00 08:00 08:21 Temp 97.8 97.8 Pulse 92 96 96 Resp 18 B/P 156/83 173/104 173/104 Pulse Ox 95 O2 Delivery Nasal Cannula Nasal Cannula O2 Flow Rate 2.0 2.0 09/27/16 09/27/16 08:21 08:22 Pulse 96 96 B/P 173/104 173/104 Intake and Output 09/26/16 09/26/16 09/27/16 15:00 23:00 07:00 Intake Total 340 ml 220 ml 120 ml Output Total 1 ml 900 ml Balance 340 ml 219 ml -780 ml TERESO HEAD MD Sep 27, 2016 10:13
[2016-09-27 11:00] VITALS: BP 137/59
[2016-09-27] MEDS: ENOXAPARIN 30 MG/0.3 ML SYRINGE. SQ SCH (12:00)
[2016-09-27 14:41] VITALS: BP 140/65
--- NOTE | 2016-09-27 15:39 | PDOC ---
PROGRESS NOTES Assessment Assessment IMPRESSION: Metabolic encephalopathy. Lethargy. Hypoglycemia, glucose 28 Respiratory failure. CHF COPD Anemia. Dementia features. RECOMMENDATIONS/PLAN: Treat medical diseases. Control hypoglycemia. MRI was ordered. EEG performed on 09/27. Lab: see orders. OT/PT. FU with PCP. Past Medical History Pulmonary: COPD CENTRAL NERVOUS SYSTEM: Dementia Heme/Onc: Anemia NOS Rheumatologic: Rheumatoid arthritis Endocrine: Hypothyroidism, Osteoporosis, Other Past Surgical History Appendectomy, Cholecystectomy, Tubal Ligation. Family History Coronary Artery Disease Social History ALCOHOL: none Drugs: None Lives: with Family ALLERGY: Reviewed. MEDICATIONS: Refer to MAR REVIEW OF SYSTEMS: Constitutional: No malnutrition, weight loss, cachexia. Head: No traumatic brain or head injury. Skin: No edema, or rash. Ear: No infection, tinnitus. Eyes: No vision loss, or diplopia. Nose: No bleeding or purulent discharges. Hearing: Hearing loss. Neck: No injury. Breast: No history of cancer, masses, or discharges. Cardiac: CHF Pulmonary: COPD. GI: No GI Ulcer, GI bleeding. Urinary/genital: UTI. Endocrine: Diabetes Mellitus. Skeletomuscular: Generalized weakness. Neurological: see HP. Psychiatric: Denies drug use/abuse. Otherwise, not -piygh review of systems. PHYSICAL EXAMINATION: General appearance encephalopathic. HEENT: Normocephalic and nontraumatic. Eyes, nose, ears, and throat are unremarkable. Hearing decrease. Neck is supple. No lymphadenopathy. No Crepitus. Cardiovascular: S1, S2, regular rate and rhythm. Pulmonary: Clear to auscultation bilaterally. Abdomen: Bowel sounds are positive. Extremities: No rash, lesions, or edema. No restriction of range of motion NEUROLOGICAL EXAMINATION: Drowsiness. Not oriented to time, place but may know person. PERRL. EOMI. CN: no focal findings. Muscle tone: within normal. Muscle strength: 4 DTR: 1-2 Plantar reflex: Neutral response bilaterally Gait: not examined in bed. Sensory exam: no abnormal findings. No obvious cerebellar signs elicited. F-T-N test not performed due to not follow commands. Objective Objective Vital Signs Date Time Temp Pulse Resp B/P Pulse Ox O2 Delivery O2 Flow Rate FiO2 09/27/16 14:41 98.2 98 20 140/65 96 Nasal Cannula 2.0 98.2 Intake and Output 09/27/16 06:59 Intake Total 680 ml Output Total 901 ml Balance -221 ml Intake Oral 680 ml Output Urine Total 900 ml Stool Total 1 ml # Voids 8 Vitals Signs Vitals VS - Last 72 Hours, by Label Date Time Temp Pulse Resp B/P Pulse Ox O2 Delivery O2 Flow Rate FiO2 09/27/16 14:41 98.2 98 20 140/65 96 Nasal Cannula 2.0 98.2 09/27/16 11:00 98.2 102 18 137/59 96 Nasal Cannula 2.0 98.2 09/27/16 08:22 96 173/104 09/27/16 08:21 96 173/104 09/27/16 08:21 96 173/104 09/27/16 08:00 Nasal Cannula 2.0 09/27/16 07:00 97.8 96 18 173/104 95 Nasal Cannula 2.0 97.8 09/27/16 04:05 92 156/83 09/27/16 03:20 98.0 86 20 160/72 96 Nasal Cannula 2.0 98.0 09/26/16 22:51 98.2 93 18 117/72 94 Nasal Cannula 2.0 98.2 09/26/16 20:35 92 115/57 09/26/16 20:09 Nasal Cannula 2.0 09/26/16 19:00 98.1 92 19 115/57 96 Nasal Cannula 2.0 98.1 09/26/16 16:31 99 150/69 09/26/16 15:09 99 150/69 09/26/16 14:44 96.8 99 24 150/69 97 Nasal Cannula 2.0 96.8 09/26/16 12:00 97 128/67 09/26/16 12:00 97 128/67 09/26/16 12:00 97 128/67 09/26/16 11:00 96.6 97 24 128/67 93 Nasal Cannula 3.0 96.6 09/26/16 07:00 96.6 100 24 159/76 96 Nasal Cannula 3.0 96.6 Laboratory Laboratory Laboratory Tests Test 09/26/16 16:18 09/26/16 16:40 09/26/16 17:14 09/26/16 17:57 Glucose (Fingerstick) 41mg/dL (70-99) 148mg/dL (70-99) 61mg/dL (70-99) 76mg/dL (70-99) Test 09/26/16 20:37 09/26/16 21:08 09/27/16 00:19 09/27/16 02:43 Glucose (Fingerstick) 31mg/dL (70-99) 109mg/dL (70-99) 76mg/dL (70-99) 93mg/dL (70-99) Test 09/27/16 04:30 09/27/16 05:54 09/27/16 07:38 09/27/16 10:34 White Blood Count 5.1x10^3/uL (4.0-11.0) Red Blood Count 3.07x10^6/uL (3.50-5.40) Hemoglobin 8.9g/dL (12.0-15.5) Hematocrit 27.0% (36.0-47.0) Mean Corpuscular Volume 88fL (79-100) Mean Corpuscular Hemoglobin 29pg (25-35) Mean Corpuscular Hemoglobin Concent 33g/dL (31-37) Red Cell Distribution Width 16.7% (11.5-14.5) Platelet Count 302x10^3/uL (140-400) Neutrophils (%) (Auto) 54% (31-73) Lymphocytes (%) (Auto) 32% (24-48) Monocytes (%) (Auto) 10% (0-9) Eosinophils (%) (Auto) 3% (0-3) Basophils (%) (Auto) 1% (0-3) Neutrophils # (Auto) 2.7x10^3uL (1.8-7.7) Lymphocytes # (Auto) 1.6x10^3/uL (1.0-4.8) Monocytes # (Auto) 0.5x10^3/uL (0.0-1.1) Eosinophils # (Auto) 0.2x10^3/uL (0.0-0.7) Basophils # (Auto) 0.1x10^3/uL (0.0-0.2) Sodium Level 140mmol/L (136-145) Potassium Level 4.5mmol/L (3.5-5.1) Chloride Level 106mmol/L (98-107) Carbon Dioxide Level 28mmol/L (21-32) Anion Gap 6 (6-14) Blood Urea Nitrogen 22mg/dL (7-20) Creatinine 1.2mg/dL (0.6-1.0) Estimated GFR (Cockcroft-Gault) 42.6 Glucose Level 105mg/dL (70-99) Calcium Level 8.4mg/dL (8.5-10.1) Vitamin B12 Level 438pg/mL (247-911) Glucose (Fingerstick) 89mg/dL (70-99) 88mg/dL (70-99) 136mg/dL (70-99) Medication Medications Current Medications Simvastatin (Zocor) 10 mg QHS PO Last administered on 09/26/16t 20:33; Start at 21:00 Comment Review of Relevant I have reviewed the following items tin (where applicable) has been applied. ASHLEY LUNA MD Sep 27, 2016 15:39
--- NOTE | 2016-09-27 16:19 | RAD ---
PROCEDURE Brain MRI without contrast. HISTORY Confusion. Mental status changes. TECHNIQUE Multiplanar and multi sequence magnetic resonance imaging of the brain was performed without contrast COMPARISON CT dated 09/26/2016. FINDINGS There is no restricted diffusion to suggest acute or subacute infarction. There is no susceptibility effect to suggest hemorrhage. There is no mass effect or midline shift. There is no hydrocephalus. There are scattered and confluent areas of T2/FLAIR hyperintensity within the cerebral white matter, a nonspecific finding likely due to chronic small vessel disease. There are chronic lacunar infarcts or dilated perivascular spaces within the left basal ganglia and bilateral thalami. There is suspected hypoplastic distal left vertebral artery. There is mild cerebral volume loss. The orbits, paranasal sinuses and mastoid air cells are unremarkable. IMPRESSION 1. No acute intracranial finding. 2. Multiple areas of signal change throughout the cerebral white matter, a nonspecific finding likely due to chronic small vessel disease. There may be superimposed chronic lacunar infarcts or dilated perivascular spaces within the left basal ganglia and bilateral thalami. 3. Cerebral volume loss. Electronically signed by: Patricia Guardado (Sep 27, 2016 16:18:17)
--- NOTE | 2016-09-27 20:56 | EEG ---
DATE OF SERVICE: 09/27/2016 EEG NUMBER: [id number] OBJECTIVE: This is an 85-year-old female patient with history of mental status changes, lethargy and unresponsiveness. EEG was requested to evaluate cerebral activity. METHODS: Twenty electrodes were applied according to the International 10-20 electrode placement system. EKG monitoring, hyperventilation, intermittent photic stimulation, monopolar and bipolar montages are routinely utilized. The record was obtained on a digital system with video monitoring. FINDINGS: 1. Background: The patient was recorded in the awake and drowsy states. No sleep state was recorded. The overall background amplitude is 5-15 microvolts. A posterior dominant rhythm of 6-7 Hz is observed. 2. Abnormalities: No specific epileptiform discharge or electrographic seizure is seen. No focal or diffuse slowing. 3. Activation: Hyperventilation was not performed because the patient was unable to perform the technique. Intermittent photic stimulation was performed with photic driving. IMPRESSION: This EEG is an abnormal study for the awake and drowsy states. No sleep state was recorded. The posterior dominant rhythm of 6-7 Hz is slow for age. No focal, lateralizing, specific epileptiform discharge or electrographic seizure is seen. ASHLEY LUNA MD DR: GABI/jeffrey JOB#: [id number] / [id number] SINAN
--- NOTE | 2016-09-28 15:12 | PDOC ---
Provider Note Provider Note Discharge summary dictated. #[id number] TERESO HEAD MD Sep 28, 2016 15:12
--- NOTE | 2016-09-28 23:35 | DS ---
DATE OF DISCHARGE: 09/27/2016 REASON FOR ADMISSION TO THE HOSPITAL: Mental status changes, confusion, and hypoglycemia. CONSULTATIONS: Dr. Castillo, Neurology. PROCEDURES DONE: CT head, MRI of the brain, CT of the abdomen and pelvis. COMPLICATIONS NOTED: None. HOSPITAL COURSE: The patient is an 85-year-old female with history of COPD, coronary artery disease, and chronic heart failure. She was discharged from the hospital 2 weeks ago to [facility] and she was doing relatively well . On the admission day, she was very hard to arouse and when paramedics came in, her sugar was low at 27. The patient was given D50, She is not known to be diabetic a patient. The patient was observed over the hospital. Sugars were going low, was given D5 and the patient's blood sugars remained stable. CT head was negative,MRI brain was negative. CT of abdomen and pelvis was negative too. Chest x-ray was negative. EKG negative for ischemia. Chest x-ray shows mild CHF, improving lung infiltrates. On the whole, the patient's condition improved and she was discharged back to the longterm. FINAL DIAGNOSES: 1. Mental status changes secondary to hypoglycemia. 2. Chronic obstructive pulmonary disease. 3. Coronary artery disease. 4. Congestive heart failure, chronic systolic. 5. Hypothyroidism. 6. Chronic kidney disease 7. Hypertension. A1c was 5.8, creatinine 1.2, vitamin D was low at 25, and INR 1.0. TERESO HEAD MD DR: OLIVIA/jeffrey JOB#: [id number] / [id number] aakash Thompson Dr. MTDBrittani
== END 2016-09-27 19:15 | DRG 640 ==
LOC: ER → 5 SOUTH 02:02
PROVIDERS: ADMIT Internal Medicine; ATTEND Internal Medicine
DX: E16.2 Hypoglycemia, unspecified (principal); G93.41 Metabolic encephalopathy; I13.0 Hypertensive heart and chronic kidney disease with heart failure and stage 1 through stage 4 chronic kidney disease, or unspecified chronic kidney disease; J96.10 Chronic respiratory failure, unspecified whether with hypoxia or hypercapnia; E03.9 Hypothyroidism, unspecified; E78.00 Pure hypercholesterolemia, unspecified; F03.90 Unspecified dementia, unspecified severity, without behavioral disturbance, psychotic disturbance, mood disturbance, and anxiety; H40.9 Unspecified glaucoma; I25.10 Atherosclerotic heart disease of native coronary artery without angina pectoris; I50.9 Heart failure, unspecified; J44.9 Chronic obstructive pulmonary disease, unspecified; M06.9 Rheumatoid arthritis, unspecified; M81.0 Age-related osteoporosis without current pathological fracture; D64.9 Anemia, unspecified; Z79.82 Long term (current) use of aspirin; N18.3 Chronic kidney disease, stage 3 (moderate); Z82.49 Family history of ischemic heart disease and other diseases of the circulatory system; Z90.49 Acquired absence of other specified parts of digestive tract; Z90.710 Acquired absence of both cervix and uterus; Z79.899 Other long term (current) drug therapy; Z79.1 Long term (current) use of non-steroidal anti-inflammatories (NSAID); F41.9 Anxiety disorder, unspecified
CPT/HCPCS: 36415; 70450; 70551; 71010; 74176; 80048; 80053; 81001; 82306; 82607; 82947; 83036; 83880; 84443; 84484; 85027; 85610; 85730; 87641; 93005; 95816; 96374; G0481; G6038; J1650; J7042; 80196; 99285-25

== ENCOUNTER 2017-04-20 01:44 | Emergency (ER) | payer MEDICARE ==
[~2017-04-20 01:44] MED LIST changes: +ACET325T9 PO; +ALPR0.25 PO; +ASPI-630 PO; -CALC600T11 PO; +CALC600T23 PO; +CEFP100T PO; +CLON1PAT9 TD; +DILT240C77 PO; -DILT240C96 PO; +FURO-69 PO; -MAGN400O4 PO; +MAGN400O7 PO; +POTASSIUM CHLO10 MEQ PO; +TRAM50TA PO
[2017-04-20] MEDS ORDERED: IV NORMAL SALINE 1000ML BAG 1,000 ML IV ONE (02:30)
[2017-04-20] MEDS ORDERED: HYDROmorphone 2 MG/ML VIAL IV ONE (02:30)
[2017-04-20] MEDS ORDERED: ONDANSETRON PF 4 MG/2 ML VIAL. IV ONE (02:30)
[2017-04-20 02:31] LABS: BASO % 1 % (0-3); BILIRUBIN,URINE NEGATIVE (NEG); EOS % 2 % (0-3); GLUCOSE,URINE NEGATIVE (NEG); HEMATOCRIT 33.2 % (36.0-47.0); HEMOGLOBIN 10.8 g/dL (12.0-15.5); LYMPH # 2.3 x10^3/uL (1.0-4.8); LYMPH % 36 % (24-48); MEAN CORPUSCULAR HEMOGLOBIN 29 pg (25-35); MEAN CORPUSCULAR HGB CONC 33 g/dL (31-37); MEAN CORPUSCULAR VOLUME 89 fL (79-100); MONO % 8 % (0-9); NEUT % 53 % (31-73); NITRITE,URINE NEGATIVE (NEG); PLATELET COUNT 234 x10^3/uL (140-400); PROTEIN,URINE NEGATIVE (NEG-TRACE); RED BLOOD COUNT 3.73 x10^6/uL (3.50-5.40); RED CELL DISTRIBUTION WIDTH 15.8 % (11.5-14.5); UROBILINOGEN,URINE 0.2 mg/dL (0.2 mg/dL); WHITE BLOOD COUNT 6.4 x10^3/uL (4.0-11.0)
[2017-04-20 02:39] LABS: CALCIUM 8.6 mg/dL (8.5-10.1); GFR 52.4; POTASSIUM 4.7 mmol/L (3.5-5.1)
[2017-04-20 02:47] LABS: ALBUMIN 2.5 g/dL (3.4-5.0); ALBUMIN/GLOBULIN RATIO 0.6 (1.0-1.7); TOTAL BILIRUBIN 0.3 mg/dL (0.2-1.0)
[2017-04-20 02:52] LABS: BACTERIA,URINE FEW /HPF (0-FEW); RBC,URINE OCC /HPF (0-2); SQUAMOUS EPITHELIAL CELL,UR OCC /LPF
--- NOTE | 2017-04-20 03:00 | RAD ---
Limited abdominal ultrasound April 20, 2017 INDICATION: Right upper quadrant abdominal pain. COMPARISON: CT abdomen/pelvis April 06, 2017 TECHNIQUE: Multiple sonographic images of the right upper quadrant are provided. FINDINGS: Visualized portions of the pancreas appear normal. Body and tail are obscured by bowel gas. IVC is patent. No suspicious hepatic masses are identified. Mild nodular contour of the liver is noted. Liver measures 13.3 cm. Gallstones are identified within the gallbladder. CBD measures 8 mm. There is no pericholecystic fluid. There is no gallbladder wall thickening. The right kidney measures 9.3 x 3.4 x 3.3 cm. Simple appearing renal cysts are present measuring up to 2.3 cm. There is no free fluid in the right upper quadrant. IMPRESSION: 1. Cholelithiasis without sonographic evidence for acute cholecystitis. 2. There is mild nodular contour of the hepatic parenchyma. Recommend correlation with hepatic enzymes is findings may be seen in setting of cirrhosis. Electronically signed by: Renu Way MD (04/20/2017 2:57 AM) [facility]
--- NOTE | 2017-04-20 03:57 | PHYS DOC ---
Past Medical History Past Medical History: No Pertinent History Additional Past Medical Histor: thyroid disease, RA, CHRONIC KIDNEY DISEASE, BRADYCARDIA Past Surgical History: Other Additional Past Surgical Histo: fractured hip repair Alcohol Use: None Drug Use: None Adult General Chief Complaint Chief Complaint: ABDOMINAL PAIN HPI HPI Full History and physical exam is unobtainable secondary to patient's dementia. Patient is a 86 year old female who presents today to the ER for further evaluation of abdominal pain. Patient's abdominal pain started approximately 4 days ago however this evening the pain has gotten much worse. Patient reports that she was here for 4 days ago for evaluation of this abdominal pain and was worked up and was discharged to her assisted living facility. Patient today at approximately one and the morning started having severe abdominal cramping and asked to be transferred to the ED for further evaluation. Patient's workup to her prior evaluation included CT scan that was unremarkable. CT scan didn't show the likelihood of gallstones however there is no evidence of cholecystitis. Currently the patient is complaining of significant midepigastric and right upper quadrant pain. Patient denies any fever. Patient reports she is nauseous but no vomiting. Patient has no diarrhea. Review of systems: Constitutional: Denies fever or chills Eyes: Denies change in visual acuity, redness, or eye pain HENT: Denies nasal congestion or sore throat All other systems were reviewed and found to be within normal limits, except as documented in this note. Physical exam: Constitutional: Well developed, well nourished, no acute distress, non-toxic appearance. HENT: Normocephalic, atraumatic, bilateral external ears normal Eyes: PERRLA, EOMI, conjunctiva normal, no discharge. Neck: Normal range of motion, no tenderness, supple, no stridor. Cardiovascular:Heart rate regular rhythm Lungs & Thorax: Bilateral breath sounds clear to auscultation Abdomen: Bowel sounds normal, soft, tenderness to palpation to her right upper quadrant. No Vernon sign. No rebound or guarding. No signs or symptoms O be consistent with an acute surgical abdomen., no masses, no pulsatile masses. Skin: Warm, dry, no erythema, no rash. Back: No tenderness, no CVA tenderness. Extremities: No tenderness, no cyanosis, no clubbing, ROM intact, no edema. Neurologic: Alert and oriented X 2, normal motor function, normal sensory function, no focal deficits noted. Psychologic: Affect normal, judgement normal, mood normal. Assessment and plan: This is an 86-year-old female who presents to the ER today secondary to severe right upper quadrant pain. While in the ED the patient had an ultrasound performed which revealed gallstones without gallbladder however no evidence of cholecystitis or choledocholithiasis. Patient in the ED had labs drawn which were all within normal limits. Patient had a normal CBC, CMP, lipase, urinalysis. Patient had a recent CT scan approximately 2-3 days ago which did not reveal any significant pathology. Patient has been given adequate analgesia and antiemetics and IV fluids while in the ED. Patient was reevaluated at 3:30 in the morning and currently reports actually no pain whatsoever. Patient's repeat physical exam at that time revealed a soft nondistended abdomen with no tenderness to palpation in her right upper quadrant. Patient's abdominal exam is completely benign at this time. Patient feels well and is requesting to be discharged from here so she go home and get some sleep. Patient currently does not present with any signs or symptoms of be consistent with ischemic bowel, ruptured viscus, small bowel obstruction, patient will be discharged home in stable condition. Current Medications Current Medications Current Medications Medications (Trade) Dose Ordered Sig/Augusto Start Time Stop Time Status Last Admin Dose Admin Hydromorphone HCl (Dilaudid) 0.5 mg 1X ONCE 04/20/17 02:30 04/20/17 02:31 DC 04/20/17 02:33 0.5 MG Ondansetron HCl (Zofran) 4 mg 1X ONCE 04/20/17 02:30 04/20/17 02:31 DC 04/20/17 02:31 4 MG Sodium Chloride 1,000 ml @ 1,000 mls/hr 1X ONCE 04/20/17 02:30 04/20/17 03:29 DC 04/20/17 02:33 1,000 MLS/HR Allergies Allergies Allergies Coded Allergies Type Severity Reaction Last Updated Verified No Known Drug Allergies 04/08/17 No Physical Exam Physical Exam 0354: Patient is currently asymptomatic and pain-free. Patient is resting comfortably in bed. I discussed with the patient that her test results of all been unremarkable and she feels very happy and very comfortable with the plan to be discharged back home. Current Patient Data Vital Signs Vital Signs Date Time Temp Pulse Resp B/P (MAP) Pulse Ox O2 Delivery O2 Flow Rate FiO2 04/20/17 03:31 16 92 Nasal Cannula 2.0 04/20/17 03:21 86 178/85 (116) 04/20/17 01:56 98.0 98.0 Lab Values Laboratory Tests Test 04/20/17 02:15 White Blood Count 6.4 x10^3/uL (4.0-11.0) Red Blood Count 3.73 x10^6/uL (3.50-5.40) Hemoglobin 10.8 g/dL (12.0-15.5) L Hematocrit 33.2 % (36.0-47.0) L Mean Corpuscular Volume 89 fL (79-100) Mean Corpuscular Hemoglobin 29 pg (25-35) Mean Corpuscular Hemoglobin Concent 33 g/dL (31-37) Red Cell Distribution Width 15.8 % (11.5-14.5) H Platelet Count 234 x10^3/uL (140-400) Neutrophils (%) (Auto) 53 % (31-73) Lymphocytes (%) (Auto) 36 % (24-48) Monocytes (%) (Auto) 8 % (0-9) Eosinophils (%) (Auto) 2 % (0-3) Basophils (%) (Auto) 1 % (0-3) Neutrophils # (Auto) 3.4 x10^3uL (1.8-7.7) Lymphocytes # (Auto) 2.3 x10^3/uL (1.0-4.8) Monocytes # (Auto) 0.5 x10^3/uL (0.0-1.1) Eosinophils # (Auto) 0.1 x10^3/uL (0.0-0.7) Basophils # (Auto) 0.0 x10^3/uL (0.0-0.2) Urine Collection Type Unknown Urine Color Yellow Urine Clarity Clear Urine pH 7.0 Urine Specific [place] 1.010 Urine Protein Negative mg/dL (NEG-TRACE) Urine Glucose (UA) Negative mg/dL (NEG) Urine Ketones (Stick) Negative mg/dL (NEG) Urine Blood Negative (NEG) Urine Nitrite Negative (NEG) Urine Bilirubin Negative (NEG) Urine Urobilinogen Dipstick 0.2 mg/dL (0.2 mg/dL) Urine Leukocyte Esterase Trace (NEG) Urine RBC Occ /HPF (0-2) Urine WBC 1-4 /HPF (0-4) Urine Squamous Epithelial Cells Occ /LPF Urine Bacteria Few /HPF (0-FEW) Sodium Level 139 mmol/L (136-145) Potassium Level 4.7 mmol/L (3.5-5.1) Chloride Level 105 mmol/L (98-107) Carbon Dioxide Level 29 mmol/L (21-32) Anion Gap 5 (6-14) L Blood Urea Nitrogen 25 mg/dL (7-20) H Creatinine 1.0 mg/dL (0.6-1.0) Estimated GFR (Cockcroft-Gault) 52.4 BUN/Creatinine Ratio 25 (6-20) H Glucose Level 99 mg/dL (70-99) Calcium Level 8.6 mg/dL (8.5-10.1) Total Bilirubin 0.3 mg/dL (0.2-1.0) Aspartate Amino Transferase (AST) 18 U/L (15-37) Alanine Aminotransferase (ALT) 15 U/L (14-59) Alkaline Phosphatase 100 U/L (46-116) Total Protein 7.0 g/dL (6.4-8.2) Albumin 2.5 g/dL (3.4-5.0) L Albumin/Globulin Ratio 0.6 (1.0-1.7) L Lipase 102 U/L (73-393) Laboratory Tests 04/20/17 02:15 Laboratory Tests 04/20/17 02:15 EKG EKG [] Radiology/Procedures Radiology/Procedures [] Impressions: EKG reveals normal sinus rhythm at a heart rate of [address]-T wave abnormalities. No evidence of ST elevation VA. Interpreted by ER physician. Course & Med Decision Making Course & Med Decision Making Pertinent Labs and Imaging studies reviewed. (See chart for details) [] Dragon Disclaimer Dragon Disclaimer This electronic medical record was generated, in whole or in part, using a voice recognition dictation system. Departure Departure Impression: Primary Impression: Abdominal pain Additional Impression: Cholelithiasis Disposition: HOME, SELF-CARE Condition: IMPROVED Referrals: MOISÉS MARQUEZ (PCP) Patient Instructions: Abdominal Pain (Nonspecific), Cholelithiasis Additional Instructions: Please make an appointment for Ms. Mosher to see her doctor in 1-2 days. She may need a referral to see a surgeon for possible cholecystectomy if symptoms recur. Problem Qualifiers MANOLO REYNAGA MD Apr 20, 2017 03:57
[2017-04-20 04:51] VITALS: BP 178/115
--- NOTE | 2017-04-20 10:40 | EKG ---
[facility] [address] [place] [address] Test Date: 2017-04-20 Test Time: 02:52:36 Pat Name: VANESSA MARIA Department: Room: Gender: F Applications Intern: : 1930 Requested By: MANOLO REYNAGA Order Number: [id number] Reading MD: Surendra Owens Measurements Intervals [place] Rate: 85 P: -90 MS: 172 QRS: -13 QRSD: 72 T: 52 QT: 384 QTc: 457 Interpretive Statements SINUS RHYTHM LEFTWARD AXIS NONSPECIFIC ST-T WAVE CHANGES. POSSIBLY ABNORMAL ECG RI6.01 Compared to ECG 04/08/2017 16:23:26 Left-axis deviation now present Sinus bradycardia no longer present Electronically Signed On 04-20-2017 16:04:38 CLAIM APPROVER by Surendra Owens
== END 2017-04-20 05:05 | disposition home or self-care (01) ==
LOC: ER 01:44
DX: K80.20 Calculus of gallbladder without cholecystitis without obstruction (principal); E07.9 Disorder of thyroid, unspecified; M06.9 Rheumatoid arthritis, unspecified; N18.9 Chronic kidney disease, unspecified; F03.90 Unspecified dementia, unspecified severity, without behavioral disturbance, psychotic disturbance, mood disturbance, and anxiety
CPT/HCPCS: 99285; J1170; J2405; J7030; 36415; 76705; 80053; 81001; 83690; 85025; 87086; 93005; 96374; 96375

== ENCOUNTER 2017-04-20 11:46 | Inpatient (IN) | payer MEDICARE ==
[~2017-04-20] VITALS: Ht 152.4 cm; Wt 49.0 kg
[2017-04-20] MEDS ORDERED: ALBUTEROL SULFATE 2.5 MG/3 ML NEBU. NEB PRN (14:30)
[2017-04-20 14:42] LABS: BASO % 1 % (0-3); EOS % 3 % (0-3); HEMATOCRIT 31.7 % (36.0-47.0); HEMOGLOBIN 10.1 g/dL (12.0-15.5); LYMPH # 1.6 x10^3/uL (1.0-4.8); LYMPH % 29 % (24-48); MEAN CORPUSCULAR HEMOGLOBIN 29 pg (25-35); MEAN CORPUSCULAR HGB CONC 32 g/dL (31-37); MEAN CORPUSCULAR VOLUME 90 fL (79-100); MONO % 9 % (0-9); NEUT % 59 % (31-73); PLATELET COUNT 210 x10^3/uL (140-400); RED BLOOD COUNT 3.53 x10^6/uL (3.50-5.40); RED CELL DISTRIBUTION WIDTH 15.9 % (11.5-14.5); WHITE BLOOD COUNT 5.5 x10^3/uL (4.0-11.0)
[2017-04-20 14:58] LABS: CALCIUM 8.5 mg/dL (8.5-10.1); GFR 52.4; POTASSIUM 4.9 mmol/L (3.5-5.1)
--- NOTE | 2017-04-20 14:58 | EKG ---
[facility] [address] [place] [address] Test Date: 2017-04-20 Test Time: 14:53:42 Pat Name: VANESSA MARIA Department: Room: [facility] Gender: F In Room Dining Server: ROSY : 1930 Requested By: TERESO HEAD Order Number: [id number] Reading MD: Surendra Owens Measurements Intervals [place] Rate: 78 P: -5 DC: 226 QRS: -28 QRSD: 74 T: 40 QT: 382 QTc: 439 Interpretive Statements SINUS RHYTHM PROLONGED DC INTERVAL LEFTWARD AXIS NONSPECIFIC ST-T WAVE CHANGES. CONSIDER INFERIOR INFARCT ABNORMAL ECG RI6.01 Electronically Signed On 04-20-2017 16:13:04 FACILITY ASSISTANT by Surendra Owens
[2017-04-20 15:03] LABS: ALBUMIN 2.3 g/dL (3.4-5.0); ALBUMIN/GLOBULIN RATIO 0.5 (1.0-1.7); TOTAL BILIRUBIN 0.2 mg/dL (0.2-1.0); TOTAL PROTEIN 6.6 g/dL (6.4-8.2)
[2017-04-20 15:51] VITALS: BP 175/96
[2017-04-20 15:53] VITALS: BP 134/75
[2017-04-20 15:53] LABS: BILIRUBIN,URINE NEGATIVE (NEG); GLUCOSE,URINE NEGATIVE (NEG); NITRITE,URINE NEGATIVE (NEG); PROTEIN,URINE NEGATIVE (NEG-TRACE)
[2017-04-20 16:00] LABS: PROTHROMBIN TIME PATIENT 12.9 SEC (11.7-14.0)
[2017-04-20] MEDS: CARVEDILOL 3.125 MG TABLET. PO SCH (16:00)
[2017-04-20 16:08] LABS: BACTERIA,URINE 0 /HPF (0-FEW); RBC,URINE OCC /HPF (0-2); SQUAMOUS EPITHELIAL CELL,UR MOD /LPF
[2017-04-20] MEDS: IPRATRPIUM/ALBUTEROL 0.5/2.5MG 3 ML NEBU. NEB SCH ×2 (16:25→19:53)
--- NOTE | 2017-04-20 16:44 | RAD ---
Chest radiograph Two Views 04/20/2017 Clinical indication: COPD Comparison: Chest radiograph 04/09/2017 Findings: Cardiac silhouette is mildly enlarged without pulmonary venous congestion. There is mild linear atelectasis and/or scarring in the lung bases. Calcified granuloma in the peripheral right midlung. There is focal outpouching of the right paratracheal stripe. Calcified atheromatous disease of the thoracic aorta. There is blunting of the costophrenic angles. There are 2 age-indeterminate severe compression deformities of the mid to lower thoracic spine and a mild compression deformity of the upper thoracic spine. Impression: 1. Focal outpouching of the right paratracheal stripe, may be artifactual, however mediastinal mass including aneurysm not excluded. CT chest with contrast is recommended for further evaluation. 2. Mild to severe thoracic compression deformities, age indeterminate. Correlation with point tenderness is recommended. These could also be evaluated with CT chest. 3. Progression in bibasilar atelectasis. 4. Mild Cardy megaly without karen pulmonary edema.
[2017-04-20] MEDS: IV NORMAL SALINE 1000ML BAG 1,000 ML IV SCH (17:59)
[2017-04-20] MEDS: hydrALAZINE 10 MG TABLET PO SCH ×2 (17:59→21:15)
[2017-04-20 19:00] VITALS: BP 137/67
[2017-04-20] MEDS: SIMVASTATIN 10 MG TABLET PO SCH (21:14)
[2017-04-20 23:00] VITALS: BP 137/67
[2017-04-21 03:00] VITALS: BP 147/62
[2017-04-21] MEDS: IV NORMAL SALINE 1000ML BAG 1,000 ML IV SCH ×2 (06:03→17:55)
[2017-04-21 07:00] VITALS: BP 158/80
[2017-04-21] MEDS: IPRATRPIUM/ALBUTEROL 0.5/2.5MG 3 ML NEBU. NEB SCH ×4 (07:05→19:31)
[2017-04-21] MEDS: CARVEDILOL 3.125 MG TABLET. PO SCH (09:11)
[2017-04-21] MEDS: hydrALAZINE 10 MG TABLET PO SCH ×3 (09:11→21:26)
--- NOTE | 2017-04-21 09:38 | PDOC ---
Provider Note Provider Note Pt seen.H&P dictated. #[id number] TERESO HEAD MD Apr 21, 2017 09:38
--- NOTE | 2017-04-21 10:15 | PDOC ---
SURGICAL PROGRESS NOTE Subjective Gallstones and diverticulosis. Will get PIPIDA and likely need lap natasha. Will discuss with Dr. Roberts. she states to feel better with less pain. Reviewed radiology studies with radiologist. Will rule out acute cholecystitis though sono should no acute changes. Consult dictated.. Vital Signs Vital Signs Date Time Temp Pulse Resp B/P (MAP) Pulse Ox O2 Delivery O2 Flow Rate FiO2 04/21/17 09:11 80 158/80 04/21/17 07:06 92 Nasal Cannula 2.0 04/21/17 07:00 97.9 18 97.9 I&O Intake and Output 04/21/17 07:00 Intake Total 1040 ml Output Total 1550 ml Balance -510 ml Intake Oral 1040 ml Output Urine Total 1550 ml # Voids 2 Labs Laboratory Tests Test 04/20/17 14:31 04/20/17 15:30 White Blood Count 5.5 x10^3/uL (4.0-11.0) Red Blood Count 3.53 x10^6/uL (3.50-5.40) Hemoglobin 10.1 g/dL (12.0-15.5) Hematocrit 31.7 % (36.0-47.0) Mean Corpuscular Volume 90 fL (79-100) Mean Corpuscular Hemoglobin 29 pg (25-35) Mean Corpuscular Hemoglobin Concent 32 g/dL (31-37) Red Cell Distribution Width 15.9 % (11.5-14.5) Platelet Count 210 x10^3/uL (140-400) Neutrophils (%) (Auto) 59 % (31-73) Lymphocytes (%) (Auto) 29 % (24-48) Monocytes (%) (Auto) 9 % (0-9) Eosinophils (%) (Auto) 3 % (0-3) Basophils (%) (Auto) 1 % (0-3) Neutrophils # (Auto) 3.2 x10^3uL (1.8-7.7) Lymphocytes # (Auto) 1.6 x10^3/uL (1.0-4.8) Monocytes # (Auto) 0.5 x10^3/uL (0.0-1.1) Eosinophils # (Auto) 0.2 x10^3/uL (0.0-0.7) Basophils # (Auto) 0.0 x10^3/uL (0.0-0.2) Prothrombin Time 12.9 SEC (11.7-14.0) Prothromb Time International Ratio 1.0 (0.8-1.1) Sodium Level 139 mmol/L (136-145) Potassium Level 4.9 mmol/L (3.5-5.1) Chloride Level 105 mmol/L (98-107) Carbon Dioxide Level 33 mmol/L (21-32) Anion Gap 1 (6-14) Blood Urea Nitrogen 21 mg/dL (7-20) Creatinine 1.0 mg/dL (0.6-1.0) Estimated GFR (Cockcroft-Gault) 52.4 BUN/Creatinine Ratio 21 (6-20) Glucose Level 128 mg/dL (70-99) Calcium Level 8.5 mg/dL (8.5-10.1) Total Bilirubin 0.2 mg/dL (0.2-1.0) Aspartate Amino Transf (AST/SGOT) 19 U/L (15-37) Alanine Aminotransferase (ALT/SGPT) 14 U/L (14-59) Alkaline Phosphatase 99 U/L (46-116) Total Protein 6.6 g/dL (6.4-8.2) Albumin 2.3 g/dL (3.4-5.0) Albumin/Globulin Ratio 0.5 (1.0-1.7) Urine Collection Type Unknown Urine Color Yellow Urine Clarity Clear Urine pH 7.0 Urine Specific Kinder 1.015 Urine Protein Negative mg/dL (NEG-TRACE) Urine Glucose (UA) Negative mg/dL (NEG) Urine Ketones (Stick) Negative mg/dL (NEG) Urine Blood Negative (NEG) Urine Nitrite Negative (NEG) Urine Bilirubin Negative (NEG) Urine Urobilinogen Dipstick 1.0 mg/dL (0.2 mg/dL) Urine Leukocyte Esterase Negative (NEG) Urine RBC Occ /HPF (0-2) Urine WBC 1-4 /HPF (0-4) Urine Squamous Epithelial Cells Mod /LPF Urine Bacteria 0 /HPF (0-FEW) Laboratory Tests Test 04/20/17 14:31 04/20/17 15:30 White Blood Count 5.5 x10^3/uL (4.0-11.0) Red Blood Count 3.53 x10^6/uL (3.50-5.40) Hemoglobin 10.1 g/dL (12.0-15.5) Hematocrit 31.7 % (36.0-47.0) Mean Corpuscular Volume 90 fL (79-100) Mean Corpuscular Hemoglobin 29 pg (25-35) Mean Corpuscular Hemoglobin Concent 32 g/dL (31-37) Red Cell Distribution Width 15.9 % (11.5-14.5) Platelet Count 210 x10^3/uL (140-400) Neutrophils (%) (Auto) 59 % (31-73) Lymphocytes (%) (Auto) 29 % (24-48) Monocytes (%) (Auto) 9 % (0-9) Eosinophils (%) (Auto) 3 % (0-3) Basophils (%) (Auto) 1 % (0-3) Neutrophils # (Auto) 3.2 x10^3uL (1.8-7.7) Lymphocytes # (Auto) 1.6 x10^3/uL (1.0-4.8) Monocytes # (Auto) 0.5 x10^3/uL (0.0-1.1) Eosinophils # (Auto) 0.2 x10^3/uL (0.0-0.7) Basophils # (Auto) 0.0 x10^3/uL (0.0-0.2) Prothrombin Time 12.9 SEC (11.7-14.0) Prothromb Time International Ratio 1.0 (0.8-1.1) Sodium Level 139 mmol/L (136-145) Potassium Level 4.9 mmol/L (3.5-5.1) Chloride Level 105 mmol/L (98-107) Carbon Dioxide Level 33 mmol/L (21-32) Anion Gap 1 (6-14) Blood Urea Nitrogen 21 mg/dL (7-20) Creatinine 1.0 mg/dL (0.6-1.0) Estimated GFR (Cockcroft-Gault) 52.4 BUN/Creatinine Ratio 21 (6-20) Glucose Level 128 mg/dL (70-99) Calcium Level 8.5 mg/dL (8.5-10.1) Total Bilirubin 0.2 mg/dL (0.2-1.0) Aspartate Amino Transf (AST/SGOT) 19 U/L (15-37) Alanine Aminotransferase (ALT/SGPT) 14 U/L (14-59) Alkaline Phosphatase 99 U/L (46-116) Total Protein 6.6 g/dL (6.4-8.2) Albumin 2.3 g/dL (3.4-5.0) Albumin/Globulin Ratio 0.5 (1.0-1.7) Urine Collection Type Unknown Urine Color Yellow Urine Clarity Clear Urine pH 7.0 Urine Specific Kinder 1.015 Urine Protein Negative mg/dL (NEG-TRACE) Urine Glucose (UA) Negative mg/dL (NEG) Urine Ketones (Stick) Negative mg/dL (NEG) Urine Blood Negative (NEG) Urine Nitrite Negative (NEG) Urine Bilirubin Negative (NEG) Urine Urobilinogen Dipstick 1.0 mg/dL (0.2 mg/dL) Urine Leukocyte Esterase Negative (NEG) Urine RBC Occ /HPF (0-2) Urine WBC 1-4 /HPF (0-4) Urine Squamous Epithelial Cells Mod /LPF Urine Bacteria 0 /HPF (0-FEW) MARIA GUADALUPE SIMS MD Apr 21, 2017 10:15
[2017-04-21 11:00] VITALS: BP 109/52
--- NOTE | 2017-04-21 11:11 | HP ---
ADMIT DATE: 04/20/2017 LOCATION: 504. REASON FOR ADMISSION TO THE HOSPITAL: Abdominal pain and gallstones. HISTORY OF PRESENT ILLNESS: The patient is an 86-year-old female. The patient was in the hospital 2 weeks ago for abdominal pain. At that time, she had a complete workup including CT scan, seen by MAIL OFFICER, and she had gallstones without any acute cholecystitis. She was transferred to [facility]. Over the weekend, she ended up coming to the hospital to the ER for abdominal pain, and CT scan shows same problem, gallstones. It was recommended surgical consult. [facility], she was still having problems with abdominal pain, was brought to the hospital for possible surgical evaluation, may be needing surgery. Her oxygen was low too at 80% on room air. PAST MEDICAL HISTORY: She has a history of diastolic dysfunction, COPD, heart failure, CAD, hypertension, hypothyroidism, chronic kidney disease. PAST SURGICAL HISTORY: Fractured hip. ALLERGIES: None. MEDICATIONS: She is on Coreg 3.125 daily, hydralazine 10 mg 3 times daily, simvastatin 10 mg daily. She was on Cardizem, which was discontinued secondary to bradycardia. PERSONAL HISTORY: Used to smoke in the past, has not been smoking. Denies alcohol, drug abuse. She lives with her son. Code status is DNR. FAMILY HISTORY: Unremarkable. REVIEW OF SYMPTOMS: Complains of abdominal pain, mostly in the back as well as on the left side, sometimes on the right side. No nausea, no vomiting, no diarrhea. PHYSICAL EXAMINATION: GENERAL: The patient is an elderly female, curled up in bed. VITAL SIGNS: Temperature 98, pulse 81, respirations 20, blood pressure 175/96, 95% on room air, 98 on 2 liters. HEENT: Head is atraumatic. Pupils equal. Oral cavity, no teeth. NECK: Supple. Thyroid not enlarged. JVD not elevated. CHEST: Symmetrical, COPD pattern. CARDIOVASCULAR: S1, S2. LUNGS: Diminished breath sounds. ABDOMEN: Soft, slight pain in the left lower quadrant, nontender in the right upper quadrant. EXTERNAL GENITALIA: No Mata. RECTAL: Deferred. EXTREMITIES: No calf tenderness, no edema. NEUROLOGIC: The patient is answering questions 1 or 2 words. LABORATORY DATA: Shows a white count of 5, hemoglobin 10, platelets 210. Electrolytes show sodium 139, potassium 4.9, chloride 105, bicarbonate 33, BUN 21, creatinine 1.1, glucose 128. LFTs were normal. INR 1.0. Urine negative for nitrites and leukocytes. Chest x-ray shows possible thoracic compression deformities, bibasilar atelectasis. EKG shows a normal sinus rhythm, no acute ischemic changes. FINAL IMPRESSION: 1. Abdominal pain. 2. Gallstones. 3. Possible compression fracture of the spine. 4. Atelectasis in the lung, infiltrates. 5. Chronic obstructive pulmonary disease. 6. Coronary artery disease. 7. Progressive dementia. PLAN: At this time, was admitted to the hospital. Surgical consult. The patient had a CT scan of the abdomen and pelvis, will have a CT of the chest and further recommendations to follow. TERESO HEAD MD DR: OLIVIA/jeffrey JOB#: [id number] / [id number]
[2017-04-21] MEDS: HYDROcodone/APAP 5/325MG 1 TAB TABLET PO PRN (11:15)
[2017-04-21] MEDS ORDERED: SINCALIDE 1 MCG in IV NORMAL SALINE 50ML 30 ML IV ONE (11:30)
--- NOTE | 2017-04-21 12:32 | CONS ---
DATE OF CONSULTATION: HISTORY OF PRESENT ILLNESS: The patient has had on and off abdominal pain, now mostly in the right upper quadrant. She had had a CT scan which only showed diverticulosis and some old aneurysm, but no evidence of acute changes shown. It did show gallstones with no acute cholecystitis that was done recently, the CT was some time ago. PHYSICAL EXAMINATION: Showed some tenderness in the right upper quadrant, could not really tell if there were masses there or not, but she did not have rebound and she states to actually feel better with less pain now. Her white count is normal as is her temperature. I did review the studies with the radiologist. We will get a PIPIDA scan and contact Dr. Roberts as certainly I can do a cholecystectomy and she has not had surgery, most likely can do it laparoscopically. May want to repeat the CT scan to make certain that there is nothing else going on, though it was just done a couple of weeks ago. We will order a PIPIDA scan just to see and make sure the cystic duct is not blocked. We will proceed as bilirubin is normal and we will follow and most likely, we will need cholecystectomy. MARIA GUADALUPE SIMS MD DR: JUN/jeffrey JOB#: [id number] / [id number] SINAN
[2017-04-21] MEDS ORDERED: FLU VACC QS2017-18 (36MOS+)/PF 0.5 ML SYRINGE. VAX IM ONE (13:00)
--- NOTE | 2017-04-21 13:34 | RAD ---
Hepatobiliary scan 04/21/2017 Indication: Gallstones. Right upper quadrant pain. Comparison study: Right upper quadrant ultrasound April 20, 2017. Discussion: Imaging over the abdomen was performed following intravenous administration of 5.2 mCi of technetium 99m labeled Choletec. Imaging over the abdomen was performed for 45 minutes, and the gallbladder was visualized. Subsequently 1 mcg of sincalide was administered intravenously and emptying of the gallbladder was measured. There is normal uptake and excretion of radiotracer. The gallbladder is visualized beginning at approximately 25 minutes following the administration of sincalide gallbladder ejection fraction measures approximately 75% (normal is 35% or greater). Impression: No evidence of cholecystitis. Normal gallbladder ejection fraction.
[2017-04-21 14:38] VITALS: BP 105/54
--- NOTE | 2017-04-21 15:39 | RAD ---
CT of the chest without contrast, 04/21/2017: History: Mediastinal mass, compression fracture Noncontrast scans were obtained as requested. There is considerable calcific plaquing of the thoracic aorta and its branches. There is mild dilatation of the distal descending thoracic aorta near the level of the diaphragmatic hiatus at which point it measures approximately 4.4 cm in width. There is tortuosity of the innominate artery which is producing the right paratracheal mediastinal bulge seen on the chest radiographs. The heart is at the upper limits of normal in size. Extensive coronary artery calcifications are present. No mediastinal mass or adenopathy is seen. There is a calcified granuloma in the right upper lobe. There is moderate streaky atelectasis/infiltrate in the right lower lobe. There is mild atelectasis and/or scarring in the inferior lingular region on the left and in the posterior aspect of the right middle lobe adjacent to the fissures. No pulmonary mass is evident. There is a trace amount of left-sided pleural fluid. There are numerous thoracic vertebral compression fractures. There are moderate scattered degenerative changes in the spine. An old healed mid sternal fracture is noted. IMPRESSION: 1. Extensive calcific plaquing of the aorta and its branches including the coronary arteries. 2. Small distal thoracic aortic aneurysm near the diaphragmatic hiatus. 3. Moderate streaky right basilar atelectasis/infiltrate. 4. Mild atelectasis and/or scarring posteriorly in the right middle and left upper lobes. CT of the thoracic spine without contrast, 04/21/2017: Reconstructions of the thoracic spine were performed in conjunction with the CT chest study. There is accentuation of the normal thoracic kyphosis. There is a mild vertebral compression formation at T12 with associated vertebroplasty change. There is a more severe vertebral compression fracture at T10 with mild associated sclerotic change in the vertebral body. These findings are unchanged since CT abdomen images from 09/09/2016. There are moderate vertebral compression fractures at T8 and T6 of indeterminate ages. No acute fracture line is seen. There are moderate scattered spurs in the thoracic spine. There are moderate degenerative changes involving multiple facet joints bilaterally. The central spinal canal is well-preserved. IMPRESSION: 1. Old T10 and T12 vertebral compression fractures with vertebroplasty change at T12. 2. T8 and T6 vertebral compression fractures of indeterminate ages, probably old. 3. Moderate multilevel degenerative change throughout the thoracic spine. PQRS Compliance Statement: One or more of the following individualized dose reduction techniques were utilized for this examination: 1. Automated exposure control 2. Adjustment of the mA and/or kV according to patient size 3. Use of iterative reconstruction technique
[2017-04-21 19:00] VITALS: BP 139/68
[2017-04-21] MEDS: SIMVASTATIN 10 MG TABLET PO SCH (21:25)
[2017-04-21 23:00] VITALS: BP 135/60
[2017-04-22 03:00] VITALS: BP 114/47
[2017-04-22] MEDS: IV NORMAL SALINE 1000ML BAG 1,000 ML IV SCH (04:39)
[2017-04-22] MEDS: HYDROcodone/APAP 5/325MG 1 TAB TABLET PO PRN ×2 (06:01→08:52)
[2017-04-22 06:08] LABS: BASO % 1 % (0-3); EOS % 4 % (0-3); HEMATOCRIT 28.8 % (36.0-47.0); HEMOGLOBIN 9.4 g/dL (12.0-15.5); LYMPH # 1.7 x10^3/uL (1.0-4.8); LYMPH % 29 % (24-48); MEAN CORPUSCULAR HEMOGLOBIN 29 pg (25-35); MEAN CORPUSCULAR HGB CONC 33 g/dL (31-37); MEAN CORPUSCULAR VOLUME 89 fL (79-100); MONO % 9 % (0-9); NEUT % 58 % (31-73); PLATELET COUNT 211 x10^3/uL (140-400); RED BLOOD COUNT 3.25 x10^6/uL (3.50-5.40); RED CELL DISTRIBUTION WIDTH 16.3 % (11.5-14.5); WHITE BLOOD COUNT 5.7 x10^3/uL (4.0-11.0)
[2017-04-22 06:26] LABS: ALBUMIN 2.2 g/dL (3.4-5.0); ALBUMIN/GLOBULIN RATIO 0.6 (1.0-1.7); CALCIUM 8.4 mg/dL (8.5-10.1); CREATININE 1.1 mg/dL (0.6-1.0); POTASSIUM 4.3 mmol/L (3.5-5.1); TOTAL BILIRUBIN 0.2 mg/dL (0.2-1.0); TOTAL PROTEIN 6.2 g/dL (6.4-8.2)
[2017-04-22 07:00] VITALS: BP 154/84
[2017-04-22] MEDS: IPRATRPIUM/ALBUTEROL 0.5/2.5MG 3 ML NEBU. NEB SCH ×2 (07:10→10:58)
[2017-04-22] MEDS: hydrALAZINE 10 MG TABLET PO SCH ×2 (08:48→14:00)
[2017-04-22] MEDS: CARVEDILOL 3.125 MG TABLET. PO SCH (08:48)
--- NOTE | 2017-04-22 10:34 | PDOC ---
PROGRESS NOTES Subjective Subjective feels fine today Objective Objective Vital Signs Date Time Temp Pulse Resp B/P (MAP) Pulse Ox O2 Delivery O2 Flow Rate FiO2 04/22/17 08:52 93 Nasal Cannula 2.5 04/22/17 08:48 75 154/84 04/22/17 07:00 96.8 18 96.8 Intake and Output 04/22/17 07:00 Intake Total 540 ml Balance 540 ml Intake Oral 540 ml # Voids 3 Physical Exam Abdomen: Normal bowel sounds, Soft Heart: Regular rate, Normal S1, Normal S2 Extremities: No edema General: Cooperative, No acute distress HEENT: EOMI MUSCULOSKELETAL: No swelling Neck: Supple Neuro: Normal speech Psych/Mental Status: Mental status NL Skin: No significant lesion Assessment Assessment FINAL IMPRESSION: 1. Abdominal pain, improved 2. Gallstones.No cholecystitis 3. Possible compression fracture of the spine. 4. Atelectasis in the lung, infiltrates. 5. Chronic obstructive pulmonary disease. 6. Coronary artery disease. 7. Progressive dementia. PLAN: Pipida scan neg for ac cholecystitis . CT chest , scaring in the lungs CT spine ,multiple compression fractures of spine. I think pain is coming from compressions fractures of vertebra. d/c back to [place],needs oxygen now 2L. At this time, was admitted to the hospital. Surgical consult. The patient had a CT scan of the abdomen and pelvis, will have a CT of the chest and further recommendations to follow. Problems: Comment Review of Relevant I have reviewed the following items tin (where applicable) has been applied. Labs Laboratory Tests Test 04/22/17 05:05 04/22/17 05:06 Sodium Level 142 mmol/L (136-145) Potassium Level 4.3 mmol/L (3.5-5.1) Chloride Level 107 mmol/L (98-107) Carbon Dioxide Level 29 mmol/L (21-32) Anion Gap 6 (6-14) Blood Urea Nitrogen 30 mg/dL (7-20) Creatinine 1.1 mg/dL (0.6-1.0) Estimated GFR (Cockcroft-Gault) 47.0 BUN/Creatinine Ratio 27 (6-20) Glucose Level 112 mg/dL (70-99) Calcium Level 8.4 mg/dL (8.5-10.1) Total Bilirubin 0.2 mg/dL (0.2-1.0) Aspartate Amino Transf (AST/SGOT) 21 U/L (15-37) Alanine Aminotransferase (ALT/SGPT) 17 U/L (14-59) Alkaline Phosphatase 93 U/L (46-116) Total Protein 6.2 g/dL (6.4-8.2) Albumin 2.2 g/dL (3.4-5.0) Albumin/Globulin Ratio 0.6 (1.0-1.7) White Blood Count 5.7 x10^3/uL (4.0-11.0) Red Blood Count 3.25 x10^6/uL (3.50-5.40) Hemoglobin 9.4 g/dL (12.0-15.5) Hematocrit 28.8 % (36.0-47.0) Mean Corpuscular Volume 89 fL (79-100) Mean Corpuscular Hemoglobin 29 pg (25-35) Mean Corpuscular Hemoglobin Concent 33 g/dL (31-37) Red Cell Distribution Width 16.3 % (11.5-14.5) Platelet Count 211 x10^3/uL (140-400) Neutrophils (%) (Auto) 58 % (31-73) Lymphocytes (%) (Auto) 29 % (24-48) Monocytes (%) (Auto) 9 % (0-9) Eosinophils (%) (Auto) 4 % (0-3) Basophils (%) (Auto) 1 % (0-3) Neutrophils # (Auto) 3.3 x10^3uL (1.8-7.7) Lymphocytes # (Auto) 1.7 x10^3/uL (1.0-4.8) Monocytes # (Auto) 0.5 x10^3/uL (0.0-1.1) Eosinophils # (Auto) 0.2 x10^3/uL (0.0-0.7) Basophils # (Auto) 0.0 x10^3/uL (0.0-0.2) Medications Current Medications Influenza Virus Vaccine Quadrival (Fluarix Quad [id number] Syringe) 0.5 ml ONCE ONCE VAX IM Last administered on 04/21/17t 15:33; Start 04/21/17 at 13:00; Stop 04/21/17 at 13:01; Status DC Sincalide 1 mcg/ Sodium Chloride 30 ml @ 0 mls/hr 1X ONCE IV Last administered on 04/21/17t 11:48; Start 04/21/17 at 11:30; Stop 04/21/17 at 11 :31; Status DC Vitals/I & O Vital Sign - Last 24 Hours 04/21/17 04/21/17 04/21/17 04/21/17 11:00 11:15 14:38 14:45 Temp 98.8 98.1 98.8 98.1 Pulse 66 66 Resp 18 18 B/P (MAP) 109/52 (71) 105/54 (71) Pulse Ox 93 93 O2 Delivery Nasal Cannula Nasal Cannula Nasal Cannula Nasal Cannula O2 Flow Rate 2.0 2.0 2.0 04/21/17 04/21/17 04/21/17 04/21/17 15:27 15:36 19:00 19:32 Temp 97.7 97.7 Pulse 80 85 Resp 16 16 B/P (MAP) 165/80 139/68 (91) Pulse Ox 91 97 O2 Delivery Nasal Cannula Nasal Cannula O2 Flow Rate 2.0 04/21/17 04/21/17 04/21/17 04/22/17 20:00 21:26 23:00 03:00 Temp 98.2 98.8 98.2 98.8 Pulse 87 86 85 Resp 15 18 B/P (MAP) 139/68 135/60 (85) 114/47 (69) Pulse Ox 93 93 O2 Delivery Nasal Cannula Nasal Cannula Nasal Cannula O2 Flow Rate 2.0 04/22/17 04/22/17 04/22/17 04/22/17 06:01 07:00 07:08 07:11 Temp 96.8 96.8 Pulse 75 Resp 18 B/P (MAP) 154/84 (107) Pulse Ox 93 92 93 O2 Delivery Nasal Cannula Nasal Cannula Nasal Cannula Nasal Cannula O2 Flow Rate 2.0 2.0 2.0 04/22/17 04/22/17 04/22/17 04/22/17 08:26 08:48 08:48 08:52 Pulse 75 75 B/P (MAP) 154/84 154/84 Pulse Ox 93 O2 Delivery Nasal Cannula Nasal Cannula O2 Flow Rate 2.0 2.5 Intake and Output 04/21/17 04/21/17 04/22/17 15:00 23:00 07:00 Intake Total 0 ml 540 ml Balance 0 ml 540 ml TERESO HEAD MD Apr 22, 2017 10:34
--- NOTE | 2017-04-22 11:08 | PDOC ---
SURGICAL PROGRESS NOTE Subjective Clinically about the same. Pipida scan essentially normal but doeshave cholelithiasis. Also has degenerative spine disease. spoke with patient and her son yesterday. He talked to his siblings and today told Dr. Evans that they do not want surgery at this time. I will follow and at a distance if surgery becomes needed. Vital Signs Vital Signs Date Time Temp Pulse Resp B/P (MAP) Pulse Ox O2 Delivery O2 Flow Rate FiO2 04/22/17 11:00 92 Nasal Cannula 2.5 04/22/17 08:48 75 154/84 04/22/17 07:00 96.8 18 96.8 I&O Intake and Output 04/22/17 07:00 Intake Total 540 ml Balance 540 ml Intake Oral 540 ml # Voids 3 Labs Laboratory Tests Test 04/20/17 14:31 04/20/17 15:30 04/20/17 17:35 04/22/17 05:05 White Blood Count 5.5 x10^3/uL (4.0-11.0) Red Blood Count 3.53 x10^6/uL (3.50-5.40) Hemoglobin 10.1 g/dL (12.0-15.5) Hematocrit 31.7 % (36.0-47.0) Mean Corpuscular Volume 90 fL (79-100) Mean Corpuscular Hemoglobin 29 pg (25-35) Mean Corpuscular Hemoglobin Concent 32 g/dL (31-37) Red Cell Distribution Width 15.9 % (11.5-14.5) Platelet Count 210 x10^3/uL (140-400) Neutrophils (%) (Auto) 59 % (31-73) Lymphocytes (%) (Auto) 29 % (24-48) Monocytes (%) (Auto) 9 % (0-9) Eosinophils (%) (Auto) 3 % (0-3) Basophils (%) (Auto) 1 % (0-3) Neutrophils # (Auto) 3.2 x10^3uL (1.8-7.7) Lymphocytes # (Auto) 1.6 x10^3/uL (1.0-4.8) Monocytes # (Auto) 0.5 x10^3/uL (0.0-1.1) Eosinophils # (Auto) 0.2 x10^3/uL (0.0-0.7) Basophils # (Auto) 0.0 x10^3/uL (0.0-0.2) Prothrombin Time 12.9 SEC (11.7-14.0) Prothromb Time International Ratio 1.0 (0.8-1.1) Sodium Level 139 mmol/L (136-145) 142 mmol/L (136-145) Potassium Level 4.9 mmol/L (3.5-5.1) 4.3 mmol/L (3.5-5.1) Chloride Level 105 mmol/L (98-107) 107 mmol/L (98-107) Carbon Dioxide Level 33 mmol/L (21-32) 29 mmol/L (21-32) Anion Gap 1 (6-14) 6 (6-14) Blood Urea Nitrogen 21 mg/dL (7-20) 30 mg/dL (7-20) Creatinine 1.0 mg/dL (0.6-1.0) 1.1 mg/dL (0.6-1.0) Estimated GFR (Cockcroft-Gault) 52.4 47.0 BUN/Creatinine Ratio 21 (6-20) 27 (6-20) Glucose Level 128 mg/dL (70-99) 112 mg/dL (70-99) Calcium Level 8.5 mg/dL (8.5-10.1) 8.4 mg/dL (8.5-10.1) Total Bilirubin 0.2 mg/dL (0.2-1.0) 0.2 mg/dL (0.2-1.0) Aspartate Amino Transf (AST/SGOT) 19 U/L (15-37) 21 U/L (15-37) Alanine Aminotransferase (ALT/SGPT) 14 U/L (14-59) 17 U/L (14-59) Alkaline Phosphatase 99 U/L (46-116) 93 U/L (46-116) Total Protein 6.6 g/dL (6.4-8.2) 6.2 g/dL (6.4-8.2) Albumin 2.3 g/dL (3.4-5.0) 2.2 g/dL (3.4-5.0) Albumin/Globulin Ratio 0.5 (1.0-1.7) 0.6 (1.0-1.7) Urine Collection Type Unknown Urine Color Yellow Urine Clarity Clear Urine pH 7.0 Urine Specific [place] 1.015 Urine Protein Negative mg/dL (NEG-TRACE) Urine Glucose (UA) Negative mg/dL (NEG) Urine Ketones (Stick) Negative mg/dL (NEG) Urine Blood Negative (NEG) Urine Nitrite Negative (NEG) Urine Bilirubin Negative (NEG) Urine Urobilinogen Dipstick 1.0 mg/dL (0.2 mg/dL) Urine Leukocyte Esterase Negative (NEG) Urine RBC Occ /HPF (0-2) Urine WBC 1-4 /HPF (0-4) Urine Squamous Epithelial Cells Mod /LPF Urine Bacteria 0 /HPF (0-FEW) Nasal Screen MRSA (PCR) Negative (Negative) Test 04/22/17 05:06 White Blood Count 5.7 x10^3/uL (4.0-11.0) Red Blood Count 3.25 x10^6/uL (3.50-5.40) Hemoglobin 9.4 g/dL (12.0-15.5) Hematocrit 28.8 % (36.0-47.0) Mean Corpuscular Volume 89 fL (79-100) Mean Corpuscular Hemoglobin 29 pg (25-35) Mean Corpuscular Hemoglobin Concent 33 g/dL (31-37) Red Cell Distribution Width 16.3 % (11.5-14.5) Platelet Count 211 x10^3/uL (140-400) Neutrophils (%) (Auto) 58 % (31-73) Lymphocytes (%) (Auto) 29 % (24-48) Monocytes (%) (Auto) 9 % (0-9) Eosinophils (%) (Auto) 4 % (0-3) Basophils (%) (Auto) 1 % (0-3) Neutrophils # (Auto) 3.3 x10^3uL (1.8-7.7) Lymphocytes # (Auto) 1.7 x10^3/uL (1.0-4.8) Monocytes # (Auto) 0.5 x10^3/uL (0.0-1.1) Eosinophils # (Auto) 0.2 x10^3/uL (0.0-0.7) Basophils # (Auto) 0.0 x10^3/uL (0.0-0.2) Laboratory Tests Test 04/22/17 05:05 04/22/17 05:06 Sodium Level 142 mmol/L (136-145) Potassium Level 4.3 mmol/L (3.5-5.1) Chloride Level 107 mmol/L (98-107) Carbon Dioxide Level 29 mmol/L (21-32) Anion Gap 6 (6-14) Blood Urea Nitrogen 30 mg/dL (7-20) Creatinine 1.1 mg/dL (0.6-1.0) Estimated GFR (Cockcroft-Gault) 47.0 BUN/Creatinine Ratio 27 (6-20) Glucose Level 112 mg/dL (70-99) Calcium Level 8.4 mg/dL (8.5-10.1) Total Bilirubin 0.2 mg/dL (0.2-1.0) Aspartate Amino Transf (AST/SGOT) 21 U/L (15-37) Alanine Aminotransferase (ALT/SGPT) 17 U/L (14-59) Alkaline Phosphatase 93 U/L (46-116) Total Protein 6.2 g/dL (6.4-8.2) Albumin 2.2 g/dL (3.4-5.0) Albumin/Globulin Ratio 0.6 (1.0-1.7) White Blood Count 5.7 x10^3/uL (4.0-11.0) Red Blood Count 3.25 x10^6/uL (3.50-5.40) Hemoglobin 9.4 g/dL (12.0-15.5) Hematocrit 28.8 % (36.0-47.0) Mean Corpuscular Volume 89 fL (79-100) Mean Corpuscular Hemoglobin 29 pg (25-35) Mean Corpuscular Hemoglobin Concent 33 g/dL (31-37) Red Cell Distribution Width 16.3 % (11.5-14.5) Platelet Count 211 x10^3/uL (140-400) Neutrophils (%) (Auto) 58 % (31-73) Lymphocytes (%) (Auto) 29 % (24-48) Monocytes (%) (Auto) 9 % (0-9) Eosinophils (%) (Auto) 4 % (0-3) Basophils (%) (Auto) 1 % (0-3) Neutrophils # (Auto) 3.3 x10^3uL (1.8-7.7) Lymphocytes # (Auto) 1.7 x10^3/uL (1.0-4.8) Monocytes # (Auto) 0.5 x10^3/uL (0.0-1.1) Eosinophils # (Auto) 0.2 x10^3/uL (0.0-0.7) Basophils # (Auto) 0.0 x10^3/uL (0.0-0.2) MARIA GUADALUPE SIMS MD Apr 22, 2017 11:08
[2017-04-22 12:00] VITALS: BP 111/75
--- NOTE | 2017-04-27 10:10 | PDOC ---
Provider Note Provider Note Discharge summary dictated. #[id number]. TERESO HEAD MD Apr 27, 2017 10:10
--- NOTE | 2017-04-27 11:17 | DS ---
DATE OF DISCHARGE: 04/22/2017 DATE OF ADMISSION: 04/20/2017. DATE OF DISCHARGE: 04/22/2017. REASON FOR ADMISSION TO THE HOSPITAL: Abdominal pain, possible gallbladder disease. CONSULTATIONS: Dr. Brothers. PROCEDURES DONE: 1. CT of chest. 2. HIDA scan nuclear medicine. COMPLICATIONS NOTED: None. HOSPITAL COURSE: The patient is an 86-year-old female complains of abdominal pain. She had Emergency Room visit one day prior to that for abdominal pain, was found to have gallstones on the CT scan as well as the ultrasound and the patient was admitted to the hospital, was seen by Dr. Brothers and the patient had a PIPIDA scan negative for cholecystitis. Normal gallbladder ejection fraction. It was felt that the patient's pain is coming from may be skeletomuscular, had a CT of chest because of infiltrates in the lung, which shows basilar atelectasis, scarring and a CT of the thoracic spine shows old T10 and T12 compression fractures. She had a previous vertebroplasty of T12 and she has a new T6 and T8 vertebral compression fractures and it was felt that the pain is coming from the compression fractures. The patient was discharged back to [facility]. FINAL DIAGNOSES: 1. Abdominal pain, coming from referred pain from compression fractures of the spine from osteoporosis. 2. Had gallstones, but no evidence of acute cholecystitis. 3. Chronic obstructive pulmonary disease with lung scarring. 4. Dementia. 5. Hypertension. DISPOSITION: To get a sonogram is getting today and the patient is discharged back to [facility] and physical therapy, occupational therapy and see how she does. TERESO HEAD MD DR: OLIVIA/jeffrey JOB#: [id number] / [id number] MOISÉS Simons Vinaya MD
== END 2017-04-22 13:41 | DRG 445 ==
LOC: 5 NORTH 12:50
PROVIDERS: ADMIT Internal Medicine; ATTEND Internal Medicine
DX: K80.20 Calculus of gallbladder without cholecystitis without obstruction (principal); I13.0 Hypertensive heart and chronic kidney disease with heart failure and stage 1 through stage 4 chronic kidney disease, or unspecified chronic kidney disease; F03.90 Unspecified dementia, unspecified severity, without behavioral disturbance, psychotic disturbance, mood disturbance, and anxiety; I50.30 Unspecified diastolic (congestive) heart failure; J98.11 Atelectasis; J44.9 Chronic obstructive pulmonary disease, unspecified; K57.90 Diverticulosis of intestine, part unspecified, without perforation or abscess without bleeding; E03.9 Hypothyroidism, unspecified; I25.10 Atherosclerotic heart disease of native coronary artery without angina pectoris; Z66 Do not resuscitate; N18.9 Chronic kidney disease, unspecified; Z87.81 Personal history of (healed) traumatic fracture
CPT/HCPCS: 36415; 71020; 71250; 76705; 78226; 80053; 81001; 83690; 85025; 85610; 87086; 87641; 90686; 93005; 94250; 94640; 94760; 96374; 96375; A9537; J2805; J7030; J7620